=== PATIENT | male | born 1945 | race Caucasian/White ===

== ENCOUNTER 2017-01-30 01:24 | Outpatient (CLI) ==
[2017-01-30 02:42] VITALS: BMI 36.6
== END 2017-01-30 01:25 | disposition home or self-care (01) ==
LOC: AMBL 01:24
PROVIDERS: ATTEND Internal Medicine Geriatric Medicine
DX: R07.89 Other chest pain (principal); S29.9XXA Unspecified injury of thorax, initial encounter; V89.2XXA Person injured in unspecified motor-vehicle accident, traffic, initial encounter

== ENCOUNTER 2017-01-30 02:27 | Emergency (ER) ==
[2017-01-30 02:42] VITALS: BP 150/78; TEMP 98.8; BMI 36.6
[2017-01-30] MEDS ORDERED: DILAUDID 1 MG/ML SYRINGE IVP STA (02:57)
[2017-01-30] MEDS ORDERED: DILAUDID 1 MG/ML SYRINGE IM STA (02:59)
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
--- NOTE | 2017-01-30 04:37 | CT ---
EXAM: CT scan brain without contrast HISTORY: Trauma COMPARISON: None. FINDINGS: Contiguous axial images obtained from the skull base to the convexities without contrast utilizing 5-mm collimation. Sagittal and coronal reconstructions were imaged and reviewed.. The ve ntricles and CSF spaces are prominent compatible with age appropriate atrophy. There is mild perive ntricular hypodensity noted compatible with chronic microvascular disease. Visualized paranasal sin uses mastoid air cells are clear. The calvarium is intact. IMPRESSION: No acute intracranial findings.
--- NOTE | 2017-01-30 04:40 | CT ---
EXAM: CT scan cervical spine HISTORY: Trauma COMPARISON: None. FINDINGS: Contiguous axial images were obtained through the cervical spine utilizing 2-mm collimati on. Sagittal and coronal reconstructions were imaged and reviewed.. The vertebral bodies are genoveva l in height and alignment. There is 3 mm anterolisthesis of C6 upon C7. There is 2 mm anterolisthe sis of C7 upon T1.. The facet joints are intact. There is multilevel facet arthropathy with multil evel neural foraminal narrowing. IMPRESSION: No acute findings.
--- NOTE | 2017-01-30 04:44 | CT ---
EXAM: CT scan thorax without contrast HISTORY: Trauma COMPARISON: None. FINDINGS: Contiguous axial images obtained through the thorax without contrast utilizing 5-mm colli mation. Sagittal and coronal reconstructions were imaged and reviewed. The thoracic inlet is unrema rkable. Sternal wire sutures noted from previous CABG. The heart is enlarged without pericardial ef fusion. The ascending aorta is ectatic measuring 3.9 cm. There is mild dependent atelectasis at bot h lung bases. There is a hiatal hernia. Gallstone seen within the gallbladder.. Bone windows reve als no evidence of lytic or blastic lesions. IMPRESSION: No acute intrathoracic findings.
--- NOTE | 2017-01-30 04:46 | CT ---
EXAM: CT scan abdomen pelvis without contrast HISTORY: Trauma COMPARISON: None. FINDINGS: Contiguous axial images obtained through the abdomen pelvis without contrast utilizing 3- mm collimation. Sagittal and coronal reconstructions were imaged and reviewed.. There is a hiatal hernia. Gallstone is seen within the gallbladder. The liver pancreas spleen and adrenal glands hav e normal unenhanced CT appearance.. Atherosclerotic changes are seen involving the abdominal aorta without aneurysm formation. The right kidneys morphologically normal. There is likely a tiny exoph ytic cyst lower pole left kidney.. There is normal appendix. Streak artifact from bilateral hip pr ostheses obscures detail within the inferior pelvis. The visualized bowel and mesentery are unremar kable.. Postoperative changes are seen within the lower lumbar spine. IMPRESSION: No acute intra-abdominal findings. Cholelithiasis. ASVD without aneurysm.
--- NOTE | 2017-01-30 04:53 | CT ---
EXAM: CT scan lumbar spine HISTORY: Trauma COMPARISON: None. FINDINGS: Contiguous axial images obtained through the lumbar spine utilizing 3-mm collimation. Sa gittal and coronal reconstructions were imaged and reviewed.. Vertebral bodies normal height alignm ent. Degenerate disc disease is noted at L1-L2 19 - L3. Endplate degenerative changes noted at L1- L2. Postoperative changes noted consistent with prior discectomy interbody spacer placement at L3-L 4 L4-L5. There is transpedicular screw fixation at L3-S1. There has been prior partial facetectomy and laminectomy at L3 and L4 levels.. There is mild bone resorption around the right S1 pedicle s crew.. There is a central canal foraminal stenosis most prominent at L2-L3.. Bilateral neural malorie inal stenosis is noted at L3-L4. IMPRESSION: No acute findings. Extensive postoperative changes as described.
== END 2017-01-30 04:55 | disposition home or self-care (01) ==
LOC: ED 02:27
DX: M54.2 Cervicalgia (principal); R07.89 Other chest pain; M54.9 Dorsalgia, unspecified; R51 Headache; R10.84 Generalized abdominal pain; M79.643 Pain in unspecified hand; V47.5XXA Car driver injured in collision with fixed or stationary object in traffic accident, initial encounter
CPT/HCPCS: 74176; 96372; 99284

== ENCOUNTER 2018-08-02 16:38 | Emergency (ER) ==
[2018-08-02 16:42] VITALS: TEMP 99.1; BMI 31.6
[2018-08-02] MEDS ORDERED: DUONEB NEB STA ×3 (16:48→17:50)
[2018-08-02] MEDS ORDERED: SOLU-MEDROL 125 MG IVP STA (17:23)
[2018-08-02] MEDS ORDERED: ROCEPHIN 2 GM in SODIUM CHLORIDE 100 ML IV STA (17:51)
[2018-08-02] MEDS ORDERED: SODIUM CHLORIDE 1,000 ML IV STA ×2 (17:52→17:53)
--- NOTE | 2018-08-02 17:54 | ED.PDOC ---
General Stated Complaint: shortness of breath Time Seen by Physician: 16:40 Mode of Arrival: Walk-In Information Source: Patient Exam Limitations: No limitations Nursing and Triage Documentation Reviewed and Agree: Yes Does patient meet sepsis criteria?: Yes If yes, has appropriate treatment been initiated?: Yes System Inflammatory Response Syndrome: Resp >20/Minute <EDELMIRAHECTORWANDA - Last Filed: 08/02/18 18:47> <JACOB FOSTER - Last Filed: 08/02/18 20:34> ED Provider: Dr. JACOB FOSTER Chief Complaint: Respiratory Complaint Primary Care Provider: NOE [place] Sepsis Protocol: For patient's 13 years and over: Temp is 96.8 and below OR 101 and greater Pulse >90 BPM Resp >20/minute Acutely Altered Mental Status Are patient's symptoms suggestive of a new infection, such as: -Pneumonia -Skin, Soft Tissue -Endocarditis -UTI -Bone, Joint Infection -Implantable Device -Acute Abdominal Infection -Wound Infection -Meningitis -Blood Stream Catheter Infection -Unknown Review of Systems - Review Of Systems Constitutional: Reports: Chills, Malaise, Weakness, Loss of appetite Eyes: Reports: No symptoms Ears, Nose, Mouth, Throat: Reports: No symptoms Respiratory: Reports: Cough, Short of air Cardiac: Reports: No symptoms GI: Reports: No symptoms : Reports: No symptoms Musculoskeletal: Reports: No symptoms Skin: Reports: No symptoms Neurological: Reports: No symptoms Endocrine: Reports: No symptoms Hematologic/Lymphatic: Reports: No symptoms All Other Systems: Reviewed and Negative <LEXUSWANDA - Last Filed: 08/02/18 18:47> Past Medical History - Past Medical History Previously Healthy: Yes Endocrine: Reports: Dyslipidemia Cardiovascular: Reports: Hypertension, CHF Respiratory: Reports: None Hematological: Reports: None Gastrointestinal: Reports: GERD Genitourinary: Reports: None Neuro/Psych: Reports: CVA Musculoskeletal: Reports: Back Pain, Joint Pain Cancer: Reports: None - Surgical History General Surgical History: Reports: CABG, Orthopedic (bilateral hip replacement) , Back Surgery - Family History Family History: Reports: Unknown - Social History Smoking Status: Former smoker Hx Substance Use: No Alcohol Screening: None <LEXUSWANDA - Last Filed: 08/02/18 18:47> Physical Exam - Physical Exam Appearance: Ill-appearing Ill-appearing: Moderate Pain Distress: Moderate Eyes: JOHN, EOMI, Conjunctiva clear ENT: Ears normal, Nose normal, Oropharynx normal Respiratory: Breath sounds diminished (bilateral bases ), Rhonchi Cardiovascular: RRR, Pulses normal, No rub, No murmur GI/: Soft, Nontender, No masses, Bowel sounds normal, No Organomegaly Musculoskeletal: Normal strength, ROM intact, No edema, No calf tenderness Skin: Warm, Dry, Normal color Neurological: Motor intact, Reflexes intact, Cranial nerves intact, Alert, Oriented Psychiatric: Affect appropriate, Mood appropriate <WANDA ALBERTS - Last Filed: 08/02/18 18:47> Interpretation - Radiology Interpretation Radiology Interpretation By: Radiologist Radiology Results: Positive (volume over load) - Tube Station Attendant Rate: Tachy Rhythm: Sinus Ectopy: PACs - EKG Interpretation Rate: Tachy Rhythm: Sinus Ectopy: PACs Howard: NL ST Segment: Normal <WANDA ALBERTS Filed: 08/02/18 18:47> - Radiology Interpretation Radiology Results: Positive Exam Interpreted: CT Scan (Bilateral pneumnia, No PE. CAD diffuse wall edema.Small amount of perihepatic fluid., Cardiomegaly) <JACOB FOSTER - Last Filed: 08/02/18 20:34> Re-Evaluation - Re-Evaluation Time of Re-Evaluation: 17:00 Status: Improved Vital Signs Stable: Yes Pain Level: 0 Appearance: Other (tachypnea , ronchi bases) Skin: Warm and Dry Neuro: Alert and Oriented X3 CV: Other (tachycaria) Additional Comments: 6:30 pm pt is stable HR 103, PULSE OX 97% ON N.R.B. BP 148 /85. - Re-Evaluation Time of Re-Evaluation: 17:57 (6pm more comfortable heart rate 94, o2 sat 100% on nrb on second resp treatment denied chest pain) Status: Improved Vital Signs Stable: Yes Pain Level: 0 Appearance: NAD Skin: Warm and Dry Neuro: Other (heart 105 pulse ox 100 % pt is free of pain) CV: RRR Additional Comments: heart rate 97, pulse 100% on NRB pt is comfortable negative pain time 6:10 <WANDA ALBERTS - Last Filed: 08/02/18 18:47> Physician Notification - Case Discussed Physician Notified: Dr Mac Time of Notification: 20:20 (accepted to Telemetry muhammad at [facility], [place]. 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 Request Transfer to higher level of care. ( JACOB FOSTER) Course - Course Hematology/Chemistry: 08/02/18 17:03 08/02/18 17:03 <WANDA ALBERTS - Last Filed: 08/02/18 18:47> - Course Hematology/Chemistry: 08/02/18 17:03 08/02/18 17:03 <JACOB FOSTER - Last Filed: 08/02/18 20:34> - Course Orders, Labs, Meds: Lab Review 08/02/18 08/02/18 08/02/18 16:49 17:03 17:03 WBC 15.60 H RBC 3.85 L Hgb 11.3 L Hct 35.1 L MCV 91.2 MCH 29.4 MCHC 32.2 RDW Coeff of Flora 16.0 H Plt Count 262 Immature Gran % (Auto) 0.5 Neut % (Auto) 82.3 Lymph % (Auto) 7.7 L [place] % (Auto) 9.1 Eos % (Auto) 0.1 Baso % (Auto) 0.3 Immature Gran # (Auto) 0.1 Neut # (Auto) 12.8 H Lymph # (Auto) 1.2 [place] # (Auto) 1.4 Eos # (Auto) 0.0 Baso # (Auto) 0.0 PT INR APTT Puncture Site Rb O2 Saturation 90.0 L ABG pH 7.424 ABG pCO2 30.8 L ABG pO2 57.0 L* ABG HCO3 20.2 L ABG Total CO2 21 L ABG Base Excess -4 L FiO2 % 21.0 Sodium 135.6 Potassium 4.01 Chloride 104.9 Carbon Dioxide 26.1 Anion Gap 8.61 BUN 14.5 Creatinine 0.89 Estimated GFR (MDRD) 84.00 BUN/Creatinine Ratio 16.29 Glucose 107.7 H Lactic Acid Calcium 9.04 Total Bilirubin 1.60 H AST 36.5 ALT 26.2 Alkaline Phosphatase 133.5 H Total Creatine Kinase 78.8 Troponin I 0.040 NT-Pro-B Natriuret Pep Total Protein 7.26 Albumin 3.84 Globulin 3.42 Albumin/Globulin Ratio 1.12 Procalcitonin Influ A Molecular Assay Influ B Molecular Assay 08/02/18 08/02/18 08/02/18 17:03 17:03 17:03 WBC RBC Hgb Hct MCV MCH MCHC RDW Coeff of [place] Plt Count Immature Gran % (Auto) Neut % (Auto) Lymph % (Auto) [place] % (Auto) Eos % (Auto) Baso % (Auto) Immature Gran # (Auto) Neut # (Auto) Lymph # (Auto) [place] # (Auto) Eos # (Auto) Baso # (Auto) PT 11.0 INR 1.10 APTT 27.2 Puncture Site O2 Saturation ABG pH ABG pCO2 ABG pO2 ABG HCO3 ABG Total CO2 ABG Base Excess FiO2 % Sodium Potassium Chloride Carbon Dioxide Anion Gap BUN Creatinine Estimated GFR (MDRD) BUN/Creatinine Ratio Glucose Lactic Acid 1.72 Calcium Total Bilirubin AST ALT Alkaline Phosphatase Total Creatine Kinase Troponin I NT-Pro-B Natriuret Pep Total Protein Albumin Globulin Albumin/Globulin Ratio Procalcitonin 0.05 Influ A Molecular Assay Influ B Molecular Assay 08/02/18 08/02/18 08/02/18 17:05 19:18 19:20 WBC RBC Hgb Hct MCV MCH MCHC RDW Coeff of [place]ora Plt Count Immature Gran % (Auto) Neut % (Auto) Lymph % (Auto) [place] % (Auto) Eos % (Auto) Baso % (Auto) Immature Gran # (Auto) Neut # (Auto) Lymph # (Auto) [place] # (Auto) Eos # (Auto) Baso # (Auto) PT INR APTT Puncture Site O2 Saturation ABG pH ABG pCO2 ABG pO2 ABG HCO3 ABG Total CO2 ABG Base Excess FiO2 % Sodium Potassium Chloride Carbon Dioxide Anion Gap BUN Creatinine Estimated GFR (MDRD) BUN/Creatinine Ratio Glucose Lactic Acid Calcium Total Bilirubin AST ALT Alkaline Phosphatase Total Creatine Kinase Troponin I 0.041 NT-Pro-B Natriuret Pep 22285.000 H Total Protein Albumin Globulin Albumin/Globulin Ratio Procalcitonin Influ A Molecular Assay Negative by naat Influ B Molecular Assay Negative by naat Orders Category Date Time Status ABG DRAW REQUEST Stat CARDIO 08/02/18 16:49 Completed EKG-(ED ONLY) Stat CARDIO 08/02/18 16:50 Completed NEBULIZER TREATMENT Stat CARDIO 08/02/18 16:48 Completed NEBULIZER TREATMENT Stat CARDIO 08/02/18 17:50 Completed NPO REMINDER: IMAGING ONCE CARE 08/02/18 18:07 Completed ABG Stat LAB 08/02/18 16:49 Completed BLOOD CULTURE (ED ONLY) Stat LAB 08/02/18 17:03 Received CBC W/ AUTO DIFF Stat LAB 08/02/18 17:03 Completed COMPREHENSIVE METABOLIC PANEL Stat LAB 08/02/18 17:03 Completed CREATINE KINASE Stat LAB 08/02/18 17:03 Completed FLU A/B MOLECULAR Stat LAB 08/02/18 17:05 Completed LACTIC ACID Stat LAB 08/02/18 17:03 Completed PARTIAL THROMBOPLASTIN TIME Stat LAB 08/02/18 17:03 Completed PRO-BNP [NT-PROBNP] Stat LAB 08/02/18 19:20 Completed PROCALCITONIN Stat LAB 08/02/18 17:03 Completed PT WITH INR Stat LAB 08/02/18 17:03 Completed TROPONIN I Stat LAB 08/02/18 17:03 Completed TROPONIN I Stat LAB 08/02/18 19:18 Completed 0.9 % Sodium Chloride [Saline Flush] MEDS 08/02/18 16:49 Discontinued 1 syr IVF PRN PRN Azithromycin Inj [Zithromax] 500 mg MEDS 08/02/18 20:27 Active 0.9 % Sodium Chloride [Sodium Chloride] 250 ml IV ONCE Ceftriaxone Sodium [Rocephin] MEDS 08/02/18 18:01 Discontinued 2 gm .ROUTE .STK-MED ONE Ceftriaxone Sodium [Rocephin] 2 gm MEDS 08/02/18 17:51 Discontinued 0.9 % Sodium Chloride [Sodium Chloride] 100 ml IV ONCE Furosemide [Lasix] MEDS 08/02/18 18:05 Discontinued 20 mg IVP ONCE STA Ipratropium/Albuterol Neb [Duoneb] MEDS 08/02/18 16:48 Discontinued 1 vial NEB ONCE STA Ipratropium/Albuterol Neb [Duoneb] MEDS 08/02/18 16:50 Discontinued 1 vial NEB ONCE STA Ipratropium/Albuterol Neb [Duoneb] MEDS 08/02/18 17:50 Discontinued 1 vial NEB ONCE STA Methylprednisolone Sod Succ/Pf [Solu-Medrol 125 mg] MEDS 08/02/18 17:23 Discontinued 125 mg IVP ONCE STA Sodium Chloride 0.9% [Sodium Chloride] 1,000 ml MEDS 08/02/18 17:52 Active IV 125 mls/hr CHEST, 1V AP ONLY Stat RADS 08/02/18 16:[address] CHEST PE PROTOCOL Stat RADS 08/02/18 18:06 Completed Medications Generic Name Dose Route Start Last Admin Trade Name Freq PRN Reason Stop Dose Admin Sodium Chloride 1,000 mls @ 125 mls/hr 08/02/18 17:52 08/02/18 18:08 Sodium Chloride IV 08/03/18 01:51 125 mls/hr .Q8H STA Administration Azithromycin 500 mg/ Sodium 250 mls @ 125 mls/hr 08/02/18 20:27 Chloride IV 08/02/18 22:26 ONCE STA Discontinued Medications Generic Name Dose Route Start Last Admin Trade Name Freq PRN Reason Stop Dose Admin Albuterol/Ipratropium 1 vial 08/02/18 16:48 08/02/18 17:01 Duoneb NEB 08/02/18 16:49 1 vial ONCE STA Administration Albuterol/Ipratropium 1 vial 08/02/18 16:50 08/02/18 17:14 Duoneb NEB 08/02/18 16:51 Not Given ONCE STA Albuterol/Ipratropium 1 vial 08/02/18 17:50 08/02/18 17:55 Duoneb NEB 08/02/18 17:51 1 vial ONCE STA Administration Furosemide 20 mg 08/02/18 18:05 08/02/18 18:10 Lasix IVP 08/02/18 18:06 20 mg ONCE STA Administration Ceftriaxone Sodium 2 gm/ 100 mls @ 100 mls/hr 08/02/18 17:51 08/02/18 18:07 Sodium Chloride IV 08/02/18 18:50 100 mls/hr ONCE STA Administration Methylprednisolone Sodium Succinate 125 mg 08/02/18 17:23 08/02/18 17:37 Solu-Medrol 125 Mg IVP 08/02/18 17:24 125 mg ONCE STA Administration Sodium Chloride 1 syr 08/02/18 16:49 08/02/18 17:38 Saline Flush IVF 1 syr PRN PRN Administration To flush IV Vital Signs: Temp Pulse Resp BP Pulse Ox 08/02/18 20:04 95 H 130/74 95 08/02/18 18:57 102 H 121/72 100 08/02/18 18:26 97 H 24 148/85 H 100 08/02/18 16:38 99.1 F 103 H 28 H 128/73 90 L Departure - Departure Time of Disposition: 19:00 (returns from CT DEPT . PT IS COMFORTABLE ALL VITAL SIGNS STABLE NO CHEST PAIN) Pt referred to PMD for follow-up: Yes IPMP verified?: No Disposition Discussed With: Patient <WANDA ALBERTS - Last Filed: 08/02/18 18:47> - Departure Time of Disposition: 20:59 <JACOB FOSTER - Last Filed: 08/02/18 20:34> - Departure Disposition: TSF SHORT-TRM HOSP Discharge Problem: Pneumonia Qualifiers: Pneumonia type: due to unspecified organism Laterality: unspecified laterality Lung location: unspecified part of lung Qualified Code(s): J18.9 - Pneumonia, unspecified organism CHF exacerbation Qualifiers: Heart failure type: systolic Qualified Code(s): I50.23 - Acute on chronic systolic (congestive) heart failure Instructions: Pneumonitis (ED) Condition: Fair Additional Instructions: Please call your Family Physician as soon as possible to schedule a follow-up appointment. Allergies/Adverse Reactions: Allergies diazepam [From Valium] Adverse Reaction (Verified 08/02/18 16:42) Anaphylaxis Home Medications: Ambulatory Orders Albuterol Sulfate [Proair Hfa] 2 puff IH Q4H PRN 08/02/18 Aspirin 81 mg PO DAILY 08/02/18
--- NOTE | 2018-08-02 17:59 | DI ---
Exam: Chest one-view History: Shortness of breath FINDINGS: The cardiac silhouette is upper limits. The pulmonary vasculature is prominent but techni que accentuated. No edematous infiltrates or consolidative opacities. Prior mediastinotomy. No acu te chest wall abnormality. Impression: Borderline cardiomegaly with central vascular prominence possibly technique accentuated. Correlate for evidence of volume overload. No acute findings otherwise.
[2018-08-02] MEDS ORDERED: ROCEPHIN ONE (18:01)
[2018-08-02] MEDS ORDERED: LASIX IVP STA (18:05)
--- NOTE | 2018-08-02 19:06 | CT ---
EXAM: CTA of the chest. History: Short of breath Comparison: Chest radiograph 08/02/2018 Technique: Multiplanar CT images through the thorax were obtained following administration of IV con trast. MIP images and 3-D reconstructions were also acquired. Findings: Bilateral gynecomastia. Diffuse body wall edema. Heart is enlarged. Coronary calcifications. No pericardial effusion. No thoracic aortic aneurysm. No axillary lymphadenopathy. No pathologically enlarged mediastinal lymph nodes. No hilar lymphade nopathy. There is interlobular septal thickening and small to moderate bilateral pleural effusions. Bilateral ground-glass infiltrates and nodular areas of consolidation within the lower lungs. No pn eumothorax. Within the visualized upper abdomen, small amount of perihepatic fluid. The no acute osseous abnorma lities. Sternotomy wires. No pulmonary arterial filling defects. Impression: 1. No pulmonary embolism. 2. Cardiomegaly with pulmonary edema and small to moderate bilateral pleural effusions. 3. Bilateral pneumonia. 4. Coronary artery disease. 5. Diffuse body wall edema. 6. Small amount of perihepatic fluid
[2018-08-02 20:06] VITALS: BP 130/74
[2018-08-02] MEDS ORDERED: ZITHROMAX 500 MG in SODIUM CHLORIDE 250 ML IV STA (20:27)
== END 2018-08-02 22:15 | disposition short-term general hospital (02) ==
LOC: ED 16:38
DX: J18.9 Pneumonia, unspecified organism (principal); I50.23 Acute on chronic systolic (congestive) heart failure; R06.02 Shortness of breath; E78.5 Hyperlipidemia, unspecified; I10 Essential (primary) hypertension; Z86.73 Personal history of transient ischemic attack (TIA), and cerebral infarction without residual deficits; Z95.1 Presence of aortocoronary bypass graft
CPT/HCPCS: 36415; 80053; 82550; 82803; 83605; 83880; 84145; 84484; 85025; 85610; 85730; 87040; 87502; 93005; 93010; 94640; 96361; 96365; 96366; 96375; 99285

== ENCOUNTER 2018-08-02 22:22 | Outpatient (CLI) ==
[2018-08-02 16:42] VITALS: BMI 31.6
== END 2018-08-02 22:42 | disposition short-term general hospital (02) ==
LOC: AMBL 22:22
PROVIDERS: ATTEND Internal Medicine Geriatric Medicine
DX: R06.00 Dyspnea, unspecified (principal)

== ENCOUNTER 2018-09-09 15:44 | Emergency (ER) | payer OTHER ==
[2018-09-09 15:54] VITALS: BP 122/75; TEMP 96.3; BMI 30.6
--- NOTE | 2018-09-09 15:57 | ED.PDOC ---
General ED Provider: Dr. TANYA CAIN Chief Complaint: Respiratory Complaint Stated Complaint: Shortness of breath. Hx of CHF and Pleural Effusion. States over past few days has become increasingly more dyspneic with swelling in his legs, ankles and feet. Feels chest tighness and more problems with SOB at rest and exertion. He felt he needed emergent treatment due to his symptoms and know medical problems. Time Seen by Physician: 15:45 Mode of Arrival: Walk-In Information Source: Patient Exam Limitations: No limitations Primary Care Provider: NOE [facility] Nursing and Triage Documentation Reviewed and Agree: Yes Does patient meet sepsis criteria?: No System Inflammatory Response Syndrome: Not Applicable Sepsis Protocol: For patient's 13 years and over: Temp is 96.8 and below OR 101 and greater Pulse >90 BPM Resp >20/minute Acutely Altered Mental Status Are patient's symptoms suggestive of a new infection, such as: -Pneumonia -Skin, Soft Tissue -Endocarditis -UTI -Bone, Joint Infection -Implantable Device -Acute Abdominal Infection -Wound Infection -Meningitis -Blood Stream Catheter Infection -Unknown Respiratory Complaint Exam - Shortness of Air Complaint/Exam Symptoms Are: Still present Timing: Intermittent Initial Severity: Moderate Current Severity: Moderate Character: Reports: Dyspnea at rest, Dyspnea on exertion Aggravating: Reports: Movement (Exertional activity) Alleviating: Reports: None, Upright position Associated Signs and Symptoms: Reports: Cough, Wheezing. Denies: Chest pain, Fever, Chills, Diaphoresis, Nasal congestion, Dizziness, Calf pain, Calf swelling, Edema Related History: Reports: Similar episode (hx pericardial effussion) History of Healthcare-Acquired Pneumonia: No Pulmonary Embolism Risk Factors: Reports: None Pseudomonas Risk Factors: Reports: None Tuberculosis Risk Factors: Reports: None Respiratory Distress: None Stridor Present: No Tracheal Deviation: No Subcutaneous Emphysema: No Accessory Muscle Use: No Retractions: Not Present Diminished Breath Sounds: No Prolonged Expiratory Phase: No Unable to Speak Full Sentences: No Fatigue: Yes Corina's Sign Present: No Grunting Respirations: No Kussmaul Respirations: No Differential Diagnoses: CHF, Pulmonary Embolism Quality Indicators for AMI: EKG in 10min. Quality Indicators for Cardiac Chest Pain: EKG in 10min. Review of Systems - Review Of Systems Constitutional: Reports: Weakness Eyes: Reports: No symptoms Ears, Nose, Mouth, Throat: Reports: No symptoms Respiratory: Reports: Short of air Cardiac: Reports: Edema GI: Reports: No symptoms : Reports: No symptoms Musculoskeletal: Reports: No symptoms Skin: Reports: No symptoms Neurological: Reports: No symptoms Endocrine: Reports: No symptoms Hematologic/Lymphatic: Reports: No symptoms All Other Systems: Reviewed and Negative Past Medical History - Past Medical History Previously Healthy: Yes Endocrine: Reports: Hypothyroid, Dyslipidemia Cardiovascular: Reports: Hypertension, CHF Respiratory: Reports: None Hematological: Reports: None Gastrointestinal: Reports: GERD Genitourinary: Reports: None Neuro/Psych: Reports: CVA Musculoskeletal: Reports: Back Pain, Joint Pain Cancer: Reports: None - Surgical History General Surgical History: Reports: CABG, Orthopedic (bilateral hip replacement) , Back Surgery - Family History Family History: Reports: Unknown - Social History Smoking Status: Former smoker Hx Substance Use: No Alcohol Screening: None Physical Exam - Physical Exam Appearance: Ill-appearing Ill-appearing: Moderate Pain Distress: None Eyes: JOHN, EOMI, Conjunctiva clear ENT: Ears normal, Nose normal, Oropharynx normal Neck: Supple (gross jugular venous distension 3-4 cm at 45 deg and HJReflux) Respiratory: Airway patent, Breath sounds clear, Breath sounds equal, Breath sounds diminished Cardiovascular: RRR, Pulses normal, No rub, No murmur GI/: Soft, Nontender, No masses, Bowel sounds normal, No Organomegaly Musculoskeletal: Normal strength, ROM intact, No edema, No calf tenderness Skin: Warm Neurological: Sensation intact, Motor intact, Reflexes intact, Cranial nerves intact, Alert, Oriented Psychiatric: Affect appropriate, Mood appropriate Interpretation - Radiology Interpretation Radiology Interpretation By: ED Physician Exam Interpreted: Portable CXR Xray Comments: josé miguel cardiomegaly with pulm vasc congestion Physician Notification - Case Discussed [facility] Time of Notification: 17:00 (Would not accept-needs higher level of care) Physician Notified: Dr GARY Singh at [facility] Time of Notification: 19:40 (accepts transfer) Critical Care Note - Critical Care Note Total Time (mins): 120 Course - Course Hematology/Chemistry: 09/09/18 16:20 09/09/18 16:20 Orders, Labs, Meds: Lab Review 09/09/18 09/09/18 09/09/18 16:03 16:07 16:07 WBC RBC Hgb Hct MCV MCH MCHC RDW Coeff of Flora Plt Count Immature Gran % (Auto) Neut % (Auto) Lymph % (Auto) [place] % (Auto) Eos % (Auto) Baso % (Auto) Immature Gran # (Auto) Neut # (Auto) Lymph # (Auto) [place] # (Auto) Eos # (Auto) Baso # (Auto) ESR PT INR APTT D-Dimer (Manual) Puncture Site L brachial O2 Saturation 98.0 ABG pH 7.422 ABG pCO2 36.8 ABG pO2 101.0 H ABG HCO3 24 ABG Total CO2 25 ABG Base Excess 0 Martinez Test + FiO2 % 21.0 Sodium Potassium Chloride Carbon Dioxide Anion Gap BUN Creatinine Estimated GFR (MDRD) BUN/Creatinine Ratio Glucose Calcium Total Bilirubin AST ALT Alkaline Phosphatase Troponin I NT-Pro-B Natriuret Pep Total Protein Albumin Globulin Albumin/Globulin Ratio Influ A Molecular Assay Negative by naat Influ B Molecular Assay Negative by naat RSV Antigen Negative by naat 09/09/18 09/09/18 09/09/18 16:20 16:20 16:20 WBC 5.91 RBC 3.29 L Hgb 9.7 L Hct 30.3 L MCV 92.1 MCH 29.5 MCHC 32.0 RDW Coeff of Flora 16.0 H Plt Count 155 Immature Gran % (Auto) 0.3 Neut % (Auto) 63.3 Lymph % (Auto) 21.3 [place] % (Auto) 13.9 H Eos % (Auto) 0.7 Baso % (Auto) 0.5 Immature Gran # (Auto) 0.0 Neut # (Auto) 3.7 Lymph # (Auto) 1.3 [place] # (Auto) 0.8 Eos # (Auto) 0.0 Baso # (Auto) 0.0 ESR 27 H PT 11.7 H INR 1.18 APTT 30.2 D-Dimer (Manual) Puncture Site O2 Saturation ABG pH ABG pCO2 ABG pO2 ABG HCO3 ABG Total CO2 ABG Base Excess Martinez Test FiO2 % Sodium 136.2 Potassium 4.15 Chloride 99.2 Carbon Dioxide 29.2 Anion Gap 11.95 BUN 16.4 Creatinine 1.17 H Estimated GFR (MDRD) 61.00 BUN/Creatinine Ratio 14.01 Glucose 114.1 H Calcium 9.05 Total Bilirubin 0.93 AST 44.1 ALT 30.8 Alkaline Phosphatase 102.5 Troponin I 0.028 NT-Pro-B Natriuret Pep 6100.000 H Total Protein 6.88 Albumin 3.75 Globulin 3.13 Albumin/Globulin Ratio 1.19 Influ A Molecular Assay Influ B Molecular Assay RSV Antigen 09/09/18 16:20 WBC RBC Hgb Hct MCV MCH MCHC RDW Coeff of Flora Plt Count Immature Gran % (Auto) Neut % (Auto) Lymph % (Auto) [place] % (Auto) Eos % (Auto) Baso % (Auto) Immature Gran # (Auto) Neut # (Auto) Lymph # (Auto) [place] # (Auto) Eos # (Auto) Baso # (Auto) ESR PT INR APTT D-Dimer (Manual) 1264.58 Puncture Site O2 Saturation ABG pH ABG pCO2 ABG pO2 ABG HCO3 ABG Total CO2 ABG Base Excess Martinez Test FiO2 % Sodium Potassium Chloride Carbon Dioxide Anion Gap BUN Creatinine Estimated GFR (MDRD) BUN/Creatinine Ratio Glucose Calcium Total Bilirubin AST ALT Alkaline Phosphatase Troponin I NT-Pro-B Natriuret Pep Total Protein Albumin Globulin Albumin/Globulin Ratio Influ A Molecular Assay Influ B Molecular Assay RSV Antigen Orders Category Date Time Status ABG DRAW REQUEST Stat CARDIO 09/09/18 16:04 Completed EKG-(ED ONLY) Stat CARDIO 09/09/18 16:01 Completed NPO REMINDER: IMAGING ONCE CARE 09/09/18 16:11 Completed IV [ED IV/MEDIPORT/POWERPORT] .ONCE EMERGENCY 09/09/18 16:12 Active ABG Stat LAB 09/09/18 16:03 Completed BLOOD CULTURE Stat LAB 09/09/18 18:30 Received CBC W/ AUTO DIFF Stat LAB 09/09/18 16:20 Completed CMP [COMPREHENSIVE METABOLIC PANEL] Stat LAB 09/09/18 16:20 Completed D-DIMER Stat LAB 09/09/18 16:20 Completed ESR Stat LAB 09/09/18 16:20 Completed FLU A & B MOLECULAR [FLU A/B MOLECULAR] Stat LAB 09/09/18 16:07 Completed NT-PROBNP Stat LAB 09/09/18 16:20 Completed PARTIAL THROMBOPLASTIN TIME Stat LAB 09/09/18 16:20 Completed PT WITH INR Stat LAB 09/09/18 16:20 Completed RAPID STREP SCREEN [MOLECULAR GROUP A STREP] Stat LAB 09/09/18 16:07 Completed RSV Stat LAB 09/09/18 16:07 Completed TROPONIN I Stat LAB 09/09/18 16:20 Completed UA [URINALYSIS C & S IF INDICATED] Stat LAB 09/09/18 16:14 Ordered 0.9 % Sodium Chloride [Saline Flush] MEDS 09/09/18 16:12 Ordered 1 syr IVF PRN PRN Ceftriaxone Sodium [Rocephin] 1 gm MEDS 09/09/18 18:19 Discontinued 0.9 % Sodium Chloride [Sodium Chloride] 50 ml IV ONCE Furosemide [Lasix] MEDS 09/09/18 16:36 Discontinued 40 mg IVP ONCE STA CHEST, 1V AP ONLY Stat RADS 09/09/18 16:[address] CHEST W/O CONTRAST Stat RADS 09/09/18 16:10 Completed Medications Generic Name Dose Route Start Last Admin Trade Name Freq PRN Reason Stop Dose Admin Sodium Chloride 1 syr 09/09/18 16:12 09/09/18 16:52 Saline Flush IVF 1 syr PRN PRN Administration To flush IV Discontinued Medications Generic Name Dose Route Start Last Admin Trade Name Freq PRN Reason Stop Dose Admin Furosemide 40 mg 09/09/18 16:36 09/09/18 16:51 Lasix IVP 09/09/18 16:37 40 mg ONCE STA Administration Ceftriaxone Sodium 1 gm/ 50 mls @ 75 mls/hr 09/09/18 18:19 09/09/18 18:46 Sodium Chloride IV 09/09/18 18:58 75 mls/hr ONCE STA Administration Vital Signs: Temp Pulse Resp BP Pulse Ox 09/09/18 15:45 96.3 F L 68 22 122/75 98 Departure - Departure Time of Disposition: 19:30 Disposition: TSF SHORT-TRM HOSP Discharge Problem: CHF (congestive heart failure), Pneumonia Condition: Fair Pt referred to PMD for follow-up: No IPMP verified?: No Additional Instructions: Discussed need for transf to patient Allergies/Adverse Reactions: Allergies acetaminophen [From Percocet] Adverse Reaction (Verified 09/09/18 15:56) diazepam [From Valium] Adverse Reaction (Verified 09/09/18 15:56) Anaphylaxis lisinopril Adverse Reaction (Verified 09/09/18 15:56) oxycodone [From Percocet] Adverse Reaction (Verified 09/09/18 15:56) simvastatin Adverse Reaction (Verified 09/09/18 15:56) Home Medications: Ambulatory Orders Albuterol Sulfate [Proair Hfa] 2 puff IH Q4H PRN 08/02/18 Aspirin 81 mg PO DAILY 08/02/18 Alprostadil [[place]] 1,000 mcg UR WEEKLY PRN MDD 6 doses/42 days 09/09/18 Amiodarone HCl [Cordarone] 200 mg PO DAILY 09/09/18 Apixaban [Eliquis] 5 mg PO BID 09/09/18 Bisacodyl [Laxative] 10 mg PO DAILY PRN 09/09/18 Budesonide/Formoterol Fumarate [Symbicort 160-4.5 Mcg Inhaler] 2 puff IH BID 04/19 Cholecalciferol (Vitamin D3) [Vitamin D3] 2,000 unit PO DAILY 09/09/18 Furosemide [Lasix Tab] 40 mg PO QDAC 09/09/18 Gabapentin 600 mg PO QID 09/09/18 Isosorbide Mononitrate [Imdur] 30 mg PO DAILY 09/09/18 Metoprolol Succinate [Toprol Xl] 25 mg PO DAILY 09/09/18 Nitroglycerin [Nitrostat] 0.4 mg SL Q5MIN X 3 DOSES PRN 09/09/18 Omeprazole [Prilosec] 20 mg PO QDAC 09/09/18 Tamsulosin HCl [Flomax] 0.8 mg PO DAILY 09/09/18 Transfer Form Completed: Yes Disposition Discussed With: Patient (Spoke with Dr Singh hospitalist who accepted patient in transfer)
[2018-09-09] MEDS ORDERED: LASIX IVP STA (16:36)
--- NOTE | 2018-09-09 17:26 | CT ---
EXAM: CT scan of the chest without contrast HISTORY: Dyspnea TECHNIQUE: Helical imaging of the chest was performed without contrast. 5 mm thin axial images and coronal and sagittal reconstructions were provided for interpretation. Comparison 08/02/2018 CT scan of the chest with contrast. FINDINGS: Small bilateral pleural effusions are identified. Patchy opacities are seen within the de pendent right and left lower lobes bilaterally adjacent to the pleural effusions. Additional patchy opacities are seen in the posterior right upper lobe of the lung. The heart is normal size. There i s atherosclerotic calcification of the thoracic aorta and coronary arteries. There is ascites seen a djacent to the liver. No lytic or blastic lesions are seen within the osseous structures. There has been previous midline sternotomy. There is a calcified gallstone seen within the lumen of the gallb ladder. IMPRESSION: Small bilateral pleural effusions are seen. Superimposed probable pneumonia seen within the lung bases bilaterally and within the posterior right upper lobe of the lung. Ascites.
[2018-09-09] MEDS ORDERED: ROCEPHIN 1 GM in SODIUM CHLORIDE 50 ML IV STA (18:19)
[2018-09-09] MEDS ORDERED: ROCEPHIN ONE (18:32)
--- NOTE | 2018-09-10 05:57 | DI ---
EXAM: Single view of the chest HISTORY: Dyspnea. COMPARISON: Chest x-ray 08/02/[address] chest 09/09/2018 same day FINDINGS: Cardiomediastinal silhouette is enlarged with intact sternotomy wires. There is no pneumot horax or pleural effusion. There is no consolidation, nodule or mass. The osseous structures are un remarkable. IMPRESSION: No acute cardiopulmonary process with effusions and ground-glass on same day CT not iden tified.
== END 2018-09-09 19:56 | disposition short-term general hospital (02) ==
LOC: ED 15:44
DX: I50.9 Heart failure, unspecified (principal); J18.9 Pneumonia, unspecified organism; R06.02 Shortness of breath; E03.9 Hypothyroidism, unspecified; I10 Essential (primary) hypertension; E78.5 Hyperlipidemia, unspecified; Z86.73 Personal history of transient ischemic attack (TIA), and cerebral infarction without residual deficits; Z87.19 Personal history of other diseases of the digestive system; Z95.1 Presence of aortocoronary bypass graft; Z79.899 Other long term (current) drug therapy
CPT/HCPCS: 36415; 80053; 82803; 83880; 84484; 85025; 85379; 85610; 85651; 85730; 87040; 87502; 87651; 87801; 93005; 93010; 96374; 96375; 99285

== ENCOUNTER 2018-09-09 20:04 | Outpatient (CLI) | payer OTHER ==
[2018-09-09 15:54] VITALS: BMI 30.6
== END 2018-09-09 20:27 | disposition short-term general hospital (02) ==
LOC: AMBL 20:04
PROVIDERS: ATTEND Family Medicine
DX: R06.02 Shortness of breath (principal); I50.9 Heart failure, unspecified; I25.10 Atherosclerotic heart disease of native coronary artery without angina pectoris

== ENCOUNTER 2018-12-31 00:52 | Emergency (ER) | payer OTHER ==
--- NOTE | 2018-12-31 00:58 | ED.PDOC ---
General ED Provider: Dr. PAULINA POLLACK Chief Complaint: Head Laceration Stated Complaint: 73 y old qith head laceration,no LOC Time Seen by Physician: 00:55 Mode of Arrival: Walk-In Information Source: Patient Exam Limitations: No limitations Primary Care Provider: NOE BAIRD Nursing and Triage Documentation Reviewed and Agree: Yes Does patient meet sepsis criteria?: No System Inflammatory Response Syndrome: Not Applicable Sepsis Protocol: For patient's 13 years and over: Temp is 96.8 and below OR 101 and greater Pulse >90 BPM Resp >20/minute Acutely Altered Mental Status Are patient's symptoms suggestive of a new infection, such as: -Pneumonia -Skin, Soft Tissue -Endocarditis -UTI -Bone, Joint Infection -Implantable Device -Acute Abdominal Infection -Wound Infection -Meningitis -Blood Stream Catheter Infection -Unknown Neurological Complaint Exam - Headache Complaint/Exam Duration: today Symptoms Are: Still present Timing: Constant Episodes Lasting: Hours Worst Headache Ever: No Initial Severity: Mild Current Severity: Mild Location: Left, Frontal Character: Reports: Sharp Aggravating: Reports: None Alleviating: Reports: None Associated Signs and Symptoms: Reports: Neck stiffness Related Surgical History: Reports: None Meningitis Risk Factors: Reports: None Temporal Arteritis Risk Factors: Reports: None Papilledema Present: No Temporal Artery Tenderness: Present: None Sinus Tenderness: Present: None Meningeal Signs Positive: No Pain on Passive Flexion-Positive Kernig's: No ROM Limited In: No Limitiations Focal Weakness: Present: None Focal Sensory Loss: Present: None Gait: Normal Nystagmus Present: No Gag Reflex Present: Yes Axrrfs-je-Culd: Normal Findings Romberg Test Positive: No (not tested-head injury) Heel to Toe Normal: Yes Differential Diagnoses: Other Review of Systems - Review Of Systems Constitutional: Reports: No symptoms Eyes: Reports: No symptoms Ears, Nose, Mouth, Throat: Reports: No symptoms Respiratory: Reports: No symptoms Cardiac: Reports: No symptoms GI: Reports: No symptoms : Reports: No symptoms Musculoskeletal: Reports: No symptoms Skin: Reports: No symptoms Neurological: Reports: No symptoms Endocrine: Reports: No symptoms Hematologic/Lymphatic: Reports: No symptoms All Other Systems: Reviewed and Negative Past Medical History - Past Medical History Previously Healthy: Yes Endocrine: Reports: Hypothyroid, Dyslipidemia Cardiovascular: Reports: Hypertension, CHF Respiratory: Reports: None Hematological: Reports: None Gastrointestinal: Reports: GERD Genitourinary: Reports: None Neuro/Psych: Reports: CVA Musculoskeletal: Reports: Back Pain, Joint Pain Cancer: Reports: None - Surgical History General Surgical History: Reports: CABG, Orthopedic (bilateral hip replacement) , Back Surgery - Family History Family History: Reports: Unknown - Social History Smoking Status: Former smoker Hx Substance Use: No Alcohol Screening: None Physical Exam - Physical Exam Appearance: No pain distress Ill-appearing: Mild Pain Distress: None Eyes: JOHN, EOMI, Conjunctiva clear ENT: Ears normal, Nose normal, Oropharynx normal Neck: Supple Respiratory: Airway patent, Breath sounds clear Cardiovascular: RRR, Pulses normal GI/: Soft, Nontender, No masses Musculoskeletal: Normal strength, ROM intact, No edema, No calf tenderness Skin: Warm, Dry, Normal color, Diaphoretic Neurological: Sensation intact, Motor intact, Reflexes intact, Cranial nerves intact, Alert, Oriented Psychiatric: Affect appropriate Procedures - Laceration/Wound Repair No standard instances Wound Length (cm): 3cm Wound Width: 2 mm Wound Explored: Clean Wound Irrigated: Yes Wound Prep: Saline Anesthesia: Lidocaine Wound Debrided: Minimal Undermining: Moderate Wound Margins: Revised Wound Repaired With: Sutures Suture Size and Type: Ethilon 3-0 Layer Closure?: No (on Apixaban./Elliquis hold am dose x 1 day consult [place]) Sterile Dressing Applied?: Yes Splint Applied?: No (dressing x 2 days,revise at [place]) Critical Care Note - Critical Care Note Total Time (mins): 0 Course - Course Orders, Labs, Meds: Orders Category Date Time Status EKG-(ED ONLY) Stat CARDIO 12/31/18 01:09 Ordered Lidocaine HCl/Pf [Lidocaine HCl 1% Sdv] MEDS 12/31/18 01:50 Discontinued 5 ml SUBCUT ONCE STA CT HEAD W/O CONTRAST Stat RADS 12/31/18 01:07 Completed Medications Discontinued Medications Generic Name Dose Route Start Last Admin Trade Name Freq PRN Reason Stop Dose Admin Lidocaine HCl 5 ml 12/31/18 01:50 Lidocaine Hcl 1% Sdv SUBCUT 12/31/18 01:51 ONCE STA Vital Signs: Temp Pulse Resp BP Pulse Ox 12/31/18 00:53 99.9 F H 104 H 20 154/78 H 97 Departure - Departure Time of Disposition: 02:08 Disposition: HOME SELF-CARE Discharge Problem: Laceration of forehead Instructions: Care For Your Stitches (ED) Condition: Good Pt referred to PMD for follow-up: Yes IPMP verified?: No Allergies/Adverse Reactions: Allergies acetaminophen [From Percocet] Adverse Reaction (Verified 12/31/18 01:04) Unknown diazepam [From Valium] Adverse Reaction (Verified 12/31/18 01:04) Anaphylaxis lisinopril Adverse Reaction (Verified 12/31/18 01:04) Unknown oxycodone [From Percocet] Adverse Reaction (Verified 12/31/18 01:04) Unknown PT STATES WAS ALLERGIC TO PERCOCET IN THE PAST BUT NO LONGER HAS AN ALLERGY TO IT simvastatin Adverse Reaction (Verified 12/31/18 01:04) Unknown Home Medications: Ambulatory Orders Albuterol Sulfate [Proair Hfa] 2 puff IH Q4H PRN 08/02/18 Aspirin 81 mg PO DAILY 08/02/18 Alprostadil [[place]] 1,000 mcg UR WEEKLY PRN MDD 6 doses/42 days 09/09/18 Amiodarone HCl [Cordarone] 200 mg PO DAILY 09/09/18 Apixaban [Eliquis] 5 mg PO BID 09/09/18 Bisacodyl [Laxative] 10 mg PO DAILY PRN 09/09/18 Budesonide/Formoterol Fumarate [Symbicort 160-4.5 Mcg Inhaler] 2 puff IH BID 04/19 Cholecalciferol (Vitamin D3) [Vitamin D3] 2,000 unit PO DAILY 09/09/18 Furosemide [Lasix Tab] 40 mg PO QDAC 09/09/18 Gabapentin 600 mg PO QID 09/09/18 Isosorbide Mononitrate [Imdur] 30 mg PO DAILY 09/09/18 Metoprolol Succinate [Toprol Xl] 25 mg PO DAILY 09/09/18 Nitroglycerin [Nitrostat] 0.4 mg SL Q5MIN X 3 DOSES PRN 09/09/18 Omeprazole [Prilosec] 20 mg PO QDAC 09/09/18 Tamsulosin HCl [Flomax] 0.8 mg PO DAILY 09/09/18 Disposition Discussed With: Patient
[2018-12-31 01:01] VITALS: BP 154/78; TEMP 99.9; BMI 29.9
--- NOTE | 2018-12-31 01:29 | CT ---
EXAM: CT brain without contrast HISTORY: Head injury TECHNIQUE: CT of the brain without intravenous contrast FINDINGS: There is no acute hemorrhage midline shift or mass effect. No hydrocephalus or abnormal e xtra-axial fluid collection. Generalized involutional atrophy, mild. Chronic microvascular changes white matter tracts, mild. No acute large vessel territorial infarct is seen. The bony cranium appe ars normal. The visualized paranasal sinuses are clear. Soft tissues without significant abnormality . IMPRESSION: 1. No acute intracranial abnormality. Chronic changes as described.
[2018-12-31] MEDS ORDERED: LIDOCAINE HCL 1% SDV SUBCUT STA (01:50)
== END 2018-12-31 02:13 | disposition home or self-care (01) ==
LOC: ED 00:52
DX: S01.81XA Laceration without foreign body of other part of head, initial encounter (principal); W20.8XXA Other cause of strike by thrown, projected or falling object, initial encounter; E03.9 Hypothyroidism, unspecified; E78.5 Hyperlipidemia, unspecified; I10 Essential (primary) hypertension; Z79.01 Long term (current) use of anticoagulants; Z79.899 Other long term (current) drug therapy; Z86.73 Personal history of transient ischemic attack (TIA), and cerebral infarction without residual deficits; Z95.1 Presence of aortocoronary bypass graft
CPT/HCPCS: 93005; 93010; 99283

== ENCOUNTER 2019-02-15 23:56 | Emergency (ER) | payer OTHER ==
[2019-02-16 00:09] VITALS: BP 107/69; TEMP 98.2
--- NOTE | 2019-02-16 00:11 | ED.PDOC ---
General ED Provider: Dr. JACOB FOSTER Chief Complaint: Chest Pain Stated Complaint: Patient is a 73 year old male who comes to the ER with complains of non-radiating, intermittent pain to mid/left chest since this morning. Also complains of shortness of breath. Has a history of CAD and CHF. Time Seen by Physician: 00:13 Mode of Arrival: Wheelchair Information Source: Patient Exam Limitations: No limitations Primary Care Provider: [facility] Nursing and Triage Documentation Reviewed and Agree: Yes Does patient meet sepsis criteria?: No System Inflammatory Response Syndrome: Not Applicable Sepsis Protocol: For patient's 13 years and over: Temp is 96.8 and below OR 101 and greater Pulse >90 BPM Resp >20/minute Acutely Altered Mental Status Are patient's symptoms suggestive of a new infection, such as: -Pneumonia -Skin, Soft Tissue -Endocarditis -UTI -Bone, Joint Infection -Implantable Device -Acute Abdominal Infection -Wound Infection -Meningitis -Blood Stream Catheter Infection -Unknown Cardiovascular Complaint Exam - Chest Pain Complaint/Exam Onset: Gradual Duration: 1 day Symptoms Are: Still present Timing: Constant, Intermittent Length of Chest Pain Episodes: all day Initial Severity: Severe Current Severity: Severe Location: Reports: Left anterior Pain Radiates: Reports: None Character: Reports: Tightness Aggravating: Reports: None Alleviating: Reports: None Associated Signs and Symptoms: Reports: Nausea, Short of air. Denies: Vomiting , Palpitations, Cough, Hemoptysis, Back pain, Abdominal pain, Dizziness Related History: Reports: Similar episode Related Surgical History: Reports: Cardiac Cath, PTCA/Stent, CABG AMI/ACS Risk Factors: Reports: Myocardial Infarction, Nitroglycerine use, Hypertension, CHF, Dyslipidemia Prior Care for this Complaint: No Recent Stress Test: No Recent Echo/LV Function: No JVD Present: No Subcutaneous Emphysema Present: No Diminshed Breath Sounds: Yes Reproducible Chest Wall Pain: No Bilateral Pulses Present: Yes Unequal Pulses Noted: No If Risk Factors for AMI/ACS Consider: EKG, Cardiac Enzymes, Serial Studies, Oxygen, Aspirin Manager Configuration Consulted: No Differential Diagnoses: Unstable Angina Review of Systems - Review Of Systems Constitutional: Reports: No symptoms Eyes: Reports: No symptoms Ears, Nose, Mouth, Throat: Reports: No symptoms Respiratory: Reports: Short of air Cardiac: Reports: Chest pain GI: Reports: No symptoms : Reports: No symptoms Musculoskeletal: Reports: No symptoms Skin: Reports: No symptoms Neurological: Reports: Anxiety Endocrine: Reports: No symptoms Hematologic/Lymphatic: Reports: No symptoms All Other Systems: Reviewed and Negative Past Medical History - Past Medical History Previously Healthy: Yes Endocrine: Reports: Hypothyroid, Dyslipidemia Cardiovascular: Reports: Hypertension, CHF Respiratory: Reports: None Hematological: Reports: None Gastrointestinal: Reports: GERD Genitourinary: Reports: None Neuro/Psych: Reports: CVA Musculoskeletal: Reports: Back Pain, Joint Pain Cancer: Reports: None - Surgical History General Surgical History: Reports: CABG, Orthopedic (bilateral hip replacement) , Back Surgery - Family History Family History: Reports: Unknown - Social History Smoking Status: Former smoker Hx Substance Use: Yes (ALCOHOL IN THE PAST) Alcohol Screening: None - Immunizations Tetanus Shot up to Date: Yes Physical Exam - Physical Exam Appearance: Ill-appearing Ill-appearing: Moderate Pain Distress: Severe Neck: Supple Respiratory: Airway patent Cardiovascular: RRR, Pulses normal, No rub, Murmur GI/: Soft, Nontender, No masses, Bowel sounds normal, No Organomegaly Musculoskeletal: Normal strength, ROM intact, No edema, No calf tenderness Skin: Warm Neurological: Alert, Oriented Psychiatric: Anxious Interpretation - Radiology Interpretation Radiology Interpretation By: ED Physician Radiology Results: Negative Exam Interpreted: Portable CXR - EKG Interpretation Time of EKG #1: 00:10 Rate: Normal Rhythm: Sinus Ectopy: None [place]: NL Interpretation: left ventricular hypertrophy, Prolonged QT Re-Evaluation - Re-Evaluation Time of Re-Evaluation: 01:15 Status: Unchanged Vital Signs Stable: No (bp 85/41 ) - Re-Evaluation Time of Re-Evaluation: 01:56 Status: Improved Vital Signs Stable: Yes (115/64) Physician Notification - Case Discussed Physician Notified: Dr. collins Time of Notification: 01:20 (accepted if [facility] declines ) Critical Care Note - Critical Care Note Total Time (mins): 45 Course - Course Hematology/Chemistry: 02/16/19 00:10 02/16/19 00:10 Orders, Labs, Meds: Lab Review 02/16/19 02/16/19 02/16/19 00:10 00:10 00:20 WBC 8.05 RBC 3.54 L Hgb 10.9 L Hct 33.2 L MCV 93.8 MCH 30.8 MCHC 32.8 RDW Coeff of [place]ora 13.6 Plt Count 171 Immature Gran % (Auto) 0.2 Neut % (Auto) 71.2 Lymph % (Auto) 15.4 [place] % (Auto) 11.9 H Eos % (Auto) 0.9 Baso % (Auto) 0.4 Immature Gran # (Auto) 0.0 Neut # (Auto) 5.7 Lymph # (Auto) 1.2 [place] # (Auto) 1.0 Eos # (Auto) 0.1 Baso # (Auto) 0.0 Sodium 137.7 Potassium 3.19 L Chloride 97.0 L Carbon Dioxide 30.6 H Anion Gap 13.29 BUN 25.9 H Creatinine 0.90 Estimated GFR (MDRD) 83.00 BUN/Creatinine Ratio 28.77 Glucose 102.4 Calcium 9.35 Total Bilirubin 0.67 AST 62.0 H ALT 34.6 Alkaline Phosphatase 151.6 H Total Creatine Kinase 234.0 H CK-MB (CK-2) 9.250 H* CK-MB (CK-2) % 3.9500 Troponin I 0.080 NT-Pro-B Natriuret Pep 7800.000 H Total Protein 7.44 Albumin 4.21 Globulin 3.23 Albumin/Globulin Ratio 1.30 Orders Category Date Time Status EKG-(ED ONLY) Stat CARDIO 02/16/19 00:05 Ordered ED CHIP FRIER APPLIED .ONCE EMERGENCY 02/16/19 00:05 Active ED IV/MEDIPORT/POWERPORT .ONCE EMERGENCY 02/16/19 00:05 Active CBC W/ AUTO DIFF Stat LAB 02/16/19 00:10 Completed COMPREHENSIVE METABOLIC PANEL Stat LAB 02/16/19 00:10 Completed CREATINE KINASE Stat LAB 02/16/19 00:10 Completed PRO-BNP [NT-PROBNP] Stat LAB 02/16/19 00:20 Completed TROPONIN I Stat LAB 02/16/19 00:10 Completed 0.9 % Sodium Chloride [Saline Flush] MEDS 02/16/19 00:05 Active 1 syr IVF PRN PRN Morphine Sulfate [Morphine 2 mg/ml Syringe] MEDS 02/16/19 00:48 Discontinued 2 mg IVP ONCE STA Nitroglycerin [Nitrostat] MEDS 02/16/19 00:22 Discontinued 0.4 mg SL ONCE STA Ondansetron HCl/Pf [Zofran 4 mg/2 ml] MEDS 02/16/19 00:48 Discontinued 4 mg IVP ONCE STA Sodium Chloride 0.9% [Sodium Chloride] 1,000 ml MEDS 02/16/19 01:11 Active IV 75 mls/hr CHEST, 1V AP ONLY Stat RADS 02/16/19 00:05 Taken Medications Generic Name Dose Route Start Last Admin Trade Name Freq PRN Reason Stop Dose Admin Sodium Chloride 1,000 mls @ 75 mls/hr 02/16/19 01:11 02/16/19 01:10 Sodium Chloride IV 02/16/19 14:30 75 mls/hr .[id number] STA Administration Sodium Chloride 1 syr 02/16/19 00:05 02/16/19 01:01 Saline Flush IVF 1 syr PRN PRN Administration To flush IV Discontinued Medications Generic Name Dose Route Start Last Admin Trade Name Freq PRN Reason Stop Dose Admin Morphine Sulfate 2 mg 02/16/19 00:48 Morphine 2 Mg/Ml Syringe IVP 02/16/19 00:49 ONCE STA Nitroglycerin 0.4 mg 02/16/19 00:22 02/16/19 00:27 Nitrostat SL 02/16/19 00:23 0.4 mg ONCE STA Administration Ondansetron HCl 4 mg 02/16/19 00:48 02/16/19 01:02 Zofran 4 Mg/2 Ml IVP 02/16/19 00:49 4 mg ONCE STA Administration Vital Signs: Temp Pulse Resp BP Pulse Ox 02/15/19 23:56 98.2 F 84 24 107/69 97 EVONNE Risk Score Age >/= 65: Yes >/= 3 CAD Risk Factors: Yes Known CAD (Stenosis >/= 50%): Yes ASA Use in Past 7 Days: Yes Severe Angina (>/= 2 episodes in 24 hours): Yes EKG ST Changes >/= 0.5mm: No Postive Cardiac Marker: No EVONNE Total Score: 5 EVONNE Risk Score: Risk Score Odds of by 30D 0 0.1 (0.1-0.2) 1 0.3 (0.2-0.3) 2 0.4 (0.3-0.5) 3 0.7 (0.6-0.9) 4 1.2 (1.0-1.5) 5 2.2 (1.9-2.6) 6 3.0 (2.5-3.6) 7 4.8 (3.8-6.1) Departure - Departure Time of Disposition: 02:15 Disposition: TSF SHORT-TRM HOSP Discharge Problem: Unstable angina, Hypotension Condition: Fair Pt referred to PMD for follow-up: Yes IPMP verified?: No Allergies/Adverse Reactions: Allergies diazepam [From Valium] Adverse Reaction (Verified 02/16/19 00:03) Anaphylaxis lisinopril Adverse Reaction (Verified 02/16/19 00:03) Unknown oxycodone [From Percocet] Adverse Reaction (Verified 02/16/19 00:03) Unknown PT STATES WAS ALLERGIC TO PERCOCET IN THE PAST BUT NO LONGER HAS AN ALLERGY TO IT simvastatin Adverse Reaction (Verified 02/16/19 00:03) Unknown Home Medications: Ambulatory Orders Albuterol Sulfate [Proair Hfa] 2 puff IH Q4H PRN 08/02/18 Aspirin 81 mg PO DAILY 08/02/18 Alprostadil [[place]] 1,000 mcg UR WEEKLY PRN MDD 6 doses/42 days 09/09/18 Amiodarone HCl [Cordarone] 200 mg PO DAILY 09/09/18 Apixaban [Eliquis] 5 mg PO BID 09/09/18 Bisacodyl [Laxative] 10 mg PO DAILY PRN 09/09/18 Budesonide/Formoterol Fumarate [Symbicort 160-4.5 Mcg Inhaler] 2 puff IH BID 04/19 Cholecalciferol (Vitamin D3) [Vitamin D3] 2,000 unit PO DAILY 09/09/18 Furosemide [Lasix Tab] 40 mg PO DAILY 09/09/18 Gabapentin 600 mg PO QID 09/09/18 Isosorbide Mononitrate [Imdur] 30 mg PO DAILY 09/09/18 Metoprolol Succinate [Toprol Xl] 25 mg PO DAILY 09/09/18 Nitroglycerin [Nitrostat] 0.4 mg SL Q5MIN X 3 DOSES PRN 09/09/18 Omeprazole [Prilosec] 20 mg PO QDAC 09/09/18 Tamsulosin HCl [Flomax] 0.8 mg PO DAILY 09/09/18 Furosemide [Lasix Tab] 80 mg PO DAILY 02/16/19
[2019-02-16] MEDS ORDERED: NITROSTAT SL STA (00:22)
[2019-02-16] MEDS ORDERED: MORPHINE 2 MG/ML SYRINGE IVP STA (00:48)
[2019-02-16] MEDS ORDERED: ZOFRAN 4 MG/2 ML IVP STA (00:48)
[2019-02-16] MEDS ORDERED: SODIUM CHLORIDE 1,000 ML IV STA (01:11)
[2019-02-16 01:43] VITALS: BMI 30.2
--- NOTE | 2019-02-16 02:04 | DI ---
EXAM: AP single view of the chest. HISTORY: Shortness of breath. FINDINGS: The bones are unremarkable. There are multiple sternotomy wires. The cardiac silhouette i s enlarged. The pulmonary vasculature is within normal limits. The costophrenic angles are clear. There is minimal left basilar atelectasis and/or pneumonia. Impression: Minimal left basilar atelectasis and/or pneumonia. Cardiomegaly.
== END 2019-02-16 02:27 | disposition short-term general hospital (02) ==
LOC: ED 23:56
DX: I20.0 Unstable angina (principal); I95.9 Hypotension, unspecified; R06.02 Shortness of breath; I25.810 Atherosclerosis of coronary artery bypass graft(s) without angina pectoris; E78.5 Hyperlipidemia, unspecified; I50.9 Heart failure, unspecified; E03.9 Hypothyroidism, unspecified; Z79.899 Other long term (current) drug therapy; Z95.5 Presence of coronary angioplasty implant and graft; Z86.73 Personal history of transient ischemic attack (TIA), and cerebral infarction without residual deficits
CPT/HCPCS: 36415; 80053; 82550; 82553; 83880; 84484; 85025; 93005; 93010; 96374; 96375; 99285

== ENCOUNTER 2019-02-24 01:03 | Emergency (ER) | payer OTHER ==
[2019-02-24 01:08] VITALS: BMI 31.8
[2019-02-24] MEDS ORDERED: MORPHINE 2 MG/ML SYRINGE IVP STA (01:29)
[2019-02-24] MEDS ORDERED: ZOFRAN 4 MG/2 ML IVP STA ×2 (01:29→04:10)
--- NOTE | 2019-02-24 01:50 | DI ---
Exam: Chest one-view History: Chest pain FINDINGS: Cardiac silhouette is enlarged. Pulmonary vasculature is normal. No infiltrative opaciti es. Prior mediastinotomy. Atherosclerotic calcification of the aorta. No acute chest wall abnormal ity. Impression: Cardiomegaly without acute cardiopulmonary disease.
[2019-02-24] MEDS ORDERED: PHENERGAN 25 MG/ML VIAL ONE (02:10)
[2019-02-24] MEDS ORDERED: DILAUDID 0.5 MG/0.5 ML SYRINGE ONE (02:10)
[2019-02-24] MEDS ORDERED: DILAUDID 0.5 MG/0.5 ML SYRINGE IVP STA (02:15)
[2019-02-24] MEDS ORDERED: PHENERGAN 25 MG/ML VIAL 12.5 MG in SODIUM CHLORIDE 50 ML IV STA (02:15)
[2019-02-24] MEDS ORDERED: SODIUM CHLORIDE 50 ML IV ONE (02:17)
--- NOTE | 2019-02-24 03:00 | ED.PDOC ---
General ED Provider: Dr. TANYA BEAR-ER Chief Complaint: Chest Pain Stated Complaint: my chest hurts and im sob Time Seen by Physician: 01:10 Mode of Arrival: Wheelchair Information Source: Patient Exam Limitations: No limitations Primary Care Provider: [facility] Nursing and Triage Documentation Reviewed and Agree: Yes Does patient meet sepsis criteria?: No System Inflammatory Response Syndrome: Not Applicable Sepsis Protocol: For patient's 13 years and over: Temp is 96.8 and below OR 101 and greater Pulse >90 BPM Resp >20/minute Acutely Altered Mental Status Are patient's symptoms suggestive of a new infection, such as: -Pneumonia -Skin, Soft Tissue -Endocarditis -UTI -Bone, Joint Infection -Implantable Device -Acute Abdominal Infection -Wound Infection -Meningitis -Blood Stream Catheter Infection -Unknown Cardiovascular Complaint Exam - Chest Pain Complaint/Exam Onset: Gradual Duration: 8hrs Symptoms Are: Still present Timing: Constant Initial Severity: Mild Current Severity: Moderate Location: Reports: Diffuse Character: Reports: Dull Associated Signs and Symptoms: Denies: Diaphoresis, Nausea, Vomiting, Fever, Palpitations, Cough, Hemoptysis, Back pain, Abdominal pain, Dizziness, Short of air, Calf pain, Calf swelling History of Healthcare-Acquired Pneumonia: Reports: No Prior Care for this Complaint: No Recent Stress Test: No Recent Echo/LV Function: No JVD Present: No Subcutaneous Emphysema Present: No Diminshed Breath Sounds: No Reproducible Chest Wall Pain: No Bilateral Pulses Present: No Unequal Pulses Noted: No If Risk Factors for AMI/ACS Consider: EKG, Serial Studies If Risk Factors for PE Consider: Chest CT with contrast If Risk Factors for TAD Consider: Chest CT with contrast, Blood pressure control Quality Indicator For Non-Traumatic Chest Pain/Syncope: EKG Performed Review of Systems - Review Of Systems Constitutional: Reports: No symptoms Eyes: Reports: No symptoms Ears, Nose, Mouth, Throat: Reports: No symptoms Respiratory: Reports: Short of air Cardiac: Reports: Chest pain GI: Reports: No symptoms : Reports: No symptoms Musculoskeletal: Reports: No symptoms Skin: Reports: No symptoms Neurological: Reports: No symptoms Endocrine: Reports: No symptoms Hematologic/Lymphatic: Reports: No symptoms All Other Systems: Reviewed and Negative Past Medical History - Past Medical History Previously Healthy: Yes Endocrine: Reports: Hypothyroid, Dyslipidemia Cardiovascular: Reports: Hypertension, CHF Respiratory: Reports: None Hematological: Reports: None Gastrointestinal: Reports: GERD Genitourinary: Reports: None Neuro/Psych: Reports: CVA Musculoskeletal: Reports: Back Pain, Joint Pain Cancer: Reports: None - Surgical History General Surgical History: Reports: CABG, Orthopedic (bilateral hip replacement) , Back Surgery - Family History Family History: Reports: Unknown - Social History Smoking Status: Former smoker Hx Substance Use: Yes (ALCOHOL IN THE PAST) Alcohol Screening: None - Immunizations Tetanus Shot up to Date: Yes Physical Exam - Physical Exam Appearance: Well-appearing, No pain distress, Well-nourished Eyes: JOHN, EOMI, Conjunctiva clear ENT: Ears normal, Nose normal, Oropharynx normal Neck: Supple Respiratory: Airway patent Cardiovascular: RRR GI/: Soft, Nontender, No masses, Bowel sounds normal, No Organomegaly Musculoskeletal: Normal strength, ROM intact, No edema, No calf tenderness Skin: Warm, Dry, Normal color Neurological: Sensation intact, Motor intact, Reflexes intact, Cranial nerves intact, Alert, Oriented Psychiatric: Affect appropriate, Mood appropriate, Anxious Interpretation - EKG Interpretation Time of EKG #1: 02:59 Rate: Normal Rhythm: Sinus Ectopy: None [place]: NL ST Segment: Normal Interpretation: nsr Re-Evaluation - Re-Evaluation Time of Re-Evaluation: 03:50 Status: Improved Vital Signs Stable: Yes Pain Level: 1 Appearance: NAD Lungs: Clear Skin: Warm and Dry Neuro: Alert and Oriented X3 CV: RRR Physician Notification - Case Discussed Physician Notified: juaquin at transfer [facility] Time of Notification: 03:55 Critical Care Note - Critical Care Note Total Time (mins): 0 Course - Course Hematology/Chemistry: 02/24/19 01:10 02/24/19 01:10 Orders, Labs, Meds: Lab Review 02/24/19 02/24/19 02/24/19 01:10 01:10 01:10 WBC 7.90 RBC 3.40 L Hgb 10.4 L Hct 32.2 L MCV 94.7 H MCH 30.6 MCHC 32.3 RDW Coeff of [place]ora 14.3 Plt Count 205 Immature Gran % (Auto) 1.8 Neut % (Auto) 70.0 Lymph % (Auto) 13.9 [place] % (Auto) 13.4 H Eos % (Auto) 0.5 Baso % (Auto) 0.4 Immature Gran # (Auto) 0.1 Neut # (Auto) 5.5 Lymph # (Auto) 1.1 [place] # (Auto) 1.1 Eos # (Auto) 0.0 Baso # (Auto) 0.0 D-Dimer (Manual) Sodium 138.8 Potassium 3.13 L Chloride 96.8 L Carbon Dioxide 34.0 H Anion Gap 11.13 BUN 15.2 Creatinine 1.00 Estimated GFR (MDRD) 74.00 BUN/Creatinine Ratio 15.20 Glucose 112.1 H Calcium 8.78 Total Bilirubin 1.14 AST 57.8 ALT 64.7 H Alkaline Phosphatase 135.1 H Total Creatine Kinase 96.2 Troponin I 0.057 NT-Pro-B Natriuret Pep Total Protein 6.80 Albumin 3.76 Globulin 3.04 Albumin/Globulin Ratio 1.23 Amylase Lipase 02/24/19 02/24/19 02/24/19 01:10 01:10 01:10 WBC RBC Hgb Hct MCV MCH MCHC RDW Coeff of [place]ora Plt Count Immature Gran % (Auto) Neut % (Auto) Lymph % (Auto) [place] % (Auto) Eos % (Auto) Baso % (Auto) Immature Gran # (Auto) Neut # (Auto) Lymph # (Auto) [place] # (Auto) Eos # (Auto) Baso # (Auto) D-Dimer (Manual) 9155.09 Sodium Potassium Chloride Carbon Dioxide Anion Gap BUN Creatinine Estimated GFR (MDRD) BUN/Creatinine Ratio Glucose Calcium Total Bilirubin AST ALT Alkaline Phosphatase Total Creatine Kinase Troponin I NT-Pro-B Natriuret Pep 7390.000 H Total Protein Albumin Globulin Albumin/Globulin Ratio Amylase 65.0 Lipase 115.0 02/24/19 03:15 WBC RBC Hgb Hct MCV MCH MCHC RDW Coeff of [place] Plt Count Immature Gran % (Auto) Neut % (Auto) Lymph % (Auto) [place] % (Auto) Eos % (Auto) Baso % (Auto) Immature Gran # (Auto) Neut # (Auto) Lymph # (Auto) [place] # (Auto) Eos # (Auto) Baso # (Auto) D-Dimer (Manual) Sodium Potassium Chloride Carbon Dioxide Anion Gap BUN Creatinine Estimated GFR (MDRD) BUN/Creatinine Ratio Glucose Calcium Total Bilirubin AST ALT Alkaline Phosphatase Total Creatine Kinase Troponin I 0.058 NT-Pro-B Natriuret Pep Total Protein Albumin Globulin Albumin/Globulin Ratio Amylase Lipase Orders Category Date Time Status EKG-(ED ONLY) Stat CARDIO 02/24/19 01:04 Completed NPO REMINDER: IMAGING ONCE CARE 02/24/19 01:26 Completed TRANSFER TO OUTSIDE FACILITY .TO [facility] 02/24/19 03:51 Ordered (TRAVIS KELLER) WRITE TRANSFER/SBAR NOTE ONCE CARE 02/24/19 03:51 Ordered DISCHARGE ASSESSMENT ONCE DISCHARGE 02/24/19 03:51 Ordered WRITE DISCHARGE NOTE ONCE DISCHARGE 02/24/19 03:51 Ordered ED APPLY O2 .ONCE EMERGENCY 02/24/19 01:04 Active ED SLAB PULLER APPLIED .ONCE EMERGENCY 02/24/19 01:04 Active ED IV/MEDIPORT/POWERPORT .ONCE EMERGENCY 02/24/19 01:04 Active AMYLASE Stat LAB 02/24/19 01:10 Completed CBC W/ AUTO DIFF Stat LAB 02/24/19 01:10 Completed COMPREHENSIVE METABOLIC PANEL Stat LAB 02/24/19 01:10 Completed CREATINE KINASE Stat LAB 02/24/19 01:10 Completed D-DIMER Stat LAB 02/24/19 01:10 Completed LIPASE Stat LAB 02/24/19 01:10 Completed PRO-BNP [NT-PROBNP] Stat LAB 02/24/19 01:10 Completed TROPONIN I Stat LAB 02/24/19 01:10 Completed TROPONIN I Stat LAB 02/24/19 03:15 Completed 0.9 % Sodium Chloride [Saline Flush] MEDS 02/24/19 01:04 Ordered 1 syr IVF PRN PRN Furosemide [Lasix] MEDS 02/24/19 03:09 Discontinued 20 mg IVP ONCE STA Hydromorphone HCl [Dilaudid 0.5 mg/0.5 ml Syringe] MEDS 02/24/19 02:10 Discontinued 0.5 mg .ROUTE .STK-MED ONE Hydromorphone HCl [Dilaudid 0.5 mg/0.5 ml Syringe] MEDS 02/24/19 02:15 Discontinued 0.5 mg IVP ONCE STA Morphine Sulfate [Morphine 2 mg/ml Syringe] MEDS 02/24/19 01:29 Discontinued 2 mg IVP ONCE STA Ondansetron HCl/Pf [Zofran 4 mg/2 ml] MEDS 02/24/19 01:29 Discontinued 4 mg IVP ONCE STA Promethazine HCl [Phenergan 25 mg/ml Vial] MEDS 02/24/19 02:10 Discontinued 25 mg .ROUTE .STK-MED ONE Promethazine HCl [Phenergan 25 mg/ml Vial] 12.5 mg MEDS 02/24/19 02:15 Discontinued 0.9 % Sodium Chloride [Sodium Chloride] [address] ABDOMEN/PELVIS WO CONTRAST Stat RADS 02/24/19 01:[address] CHEST PE PROTOCOL Stat RADS 02/24/19 01:26 Completed CXR [CHEST, 1V AP ONLY] Stat RADS 02/24/19 01:05 Completed Medications Generic Name Dose Route Start Last Admin Trade Name Freq PRN Reason Stop Dose Admin Sodium Chloride 1 syr 02/24/19 01:04 02/24/19 02:18 Saline Flush IVF 1 syr PRN PRN Administration To flush IV Discontinued Medications Generic Name Dose Route Start Last Admin Trade Name Freq PRN Reason Stop Dose Admin Furosemide 20 mg 02/24/19 03:09 02/24/19 03:16 Lasix IVP 02/24/19 03:10 20 mg ONCE STA Administration Hydromorphone HCl 0.5 mg 02/24/19 02:15 02/24/19 02:19 Dilaudid 0.5 Mg/0.5 Ml Syringe IVP 02/24/19 02:16 Not Given ONCE STA Promethazine HCl 12.5 mg/ 50.5 mls @ 75 mls/hr 02/24/19 02:15 02/24/19 02:19 Sodium Chloride IV 02/24/19 02:55 Not Given ONCE STA Morphine Sulfate 2 mg 02/24/19 01:29 02/24/19 01:33 Morphine 2 Mg/Ml Syringe IVP 02/24/19 01:30 2 mg ONCE STA Administration Ondansetron HCl 4 mg 02/24/19 01:29 02/24/19 01:34 Zofran 4 Mg/2 Ml IVP 02/24/19 01:30 4 mg ONCE STA Administration Vital Signs: Temp Pulse Resp BP Pulse Ox 02/24/19 01:03 99.2 F 85 28 H 121/73 97 EVONNE Risk Score EVONNE Risk Score: Risk Score Odds of by 30D 0 0.1 (0.1-0.2) 1 0.3 (0.2-0.3) 2 0.4 (0.3-0.5) 3 0.7 (0.6-0.9) 4 1.2 (1.0-1.5) 5 2.2 (1.9-2.6) 6 3.0 (2.5-3.6) 7 4.8 (3.8-6.1) Departure - Departure Time of Disposition: 03:50 Disposition: TSF SHORT-TRM HOSP Discharge Problem: Chest pain Instructions: Chest Pain (ED) Condition: Stable Pt referred to PMD for follow-up: Yes IPMP verified?: No Allergies/Adverse Reactions: Allergies diazepam [From Valium] Adverse Reaction (Verified 02/24/19 01:08) Anaphylaxis lisinopril Adverse Reaction (Verified 02/24/19 01:08) Unknown oxycodone [From Percocet] Adverse Reaction (Verified 02/24/19 01:08) Unknown PT STATES WAS ALLERGIC TO PERCOCET IN THE PAST BUT NO LONGER HAS AN ALLERGY TO IT simvastatin Adverse Reaction (Verified 02/24/19 01:08) Unknown Home Medications: Ambulatory Orders Albuterol Sulfate [Proair Hfa] 2 puff IH Q4H PRN 08/02/18 Aspirin 81 mg PO DAILY 08/02/18 Alprostadil [[place]] 1,000 mcg UR WEEKLY PRN MDD 6 doses/42 days 09/09/18 Amiodarone HCl [Cordarone] 200 mg PO DAILY 09/09/18 Apixaban [Eliquis] 5 mg PO BID 09/09/18 Bisacodyl [Laxative] 10 mg PO DAILY PRN 09/09/18 Budesonide/Formoterol Fumarate [Symbicort 160-4.5 Mcg Inhaler] 2 puff IH BID 04/19 Cholecalciferol (Vitamin D3) [Vitamin D3] 2,000 unit PO DAILY 09/09/18 Furosemide [Lasix Tab] 40 mg PO DAILY 09/09/18 Gabapentin 600 mg PO QID 09/09/18 Isosorbide Mononitrate [Imdur] 30 mg PO DAILY 09/09/18 Metoprolol Succinate [Toprol Xl] 25 mg PO DAILY 09/09/18 Nitroglycerin [Nitrostat] 0.4 mg SL Q5MIN X 3 DOSES PRN 09/09/18 Omeprazole [Prilosec] 20 mg PO QDAC 09/09/18 Tamsulosin HCl [Flomax] 0.8 mg PO DAILY 09/09/18 Furosemide [Lasix Tab] 80 mg PO DAILY 02/16/19 Oxycodone HCl/Acetaminophen [Percocet 5-325 mg Tablet] 1 each PO Q6H PRN Transfer Form Completed: Yes Disposition Discussed With: Patient
--- NOTE | 2019-02-24 03:02 | CT ---
EXAM: CT abdomen pelvis without intravenous contrast 02/24/2019. Sagittal and coronal reformatted i mages obtained HISTORY: Abdominal pain COMPARISON: 01/30/2017 FINDINGS: Bilateral pleural effusions. The liver shows no acute abnormality. Gallbladder has been removed. The adrenal glands and kidneys show no acute abnormality. No hydronephrosis. The spleen and pancreas show no acute process. There is no evidence of bowel obstruction. Small quantity of free fluid in the pelvis. Unremarkable urinary bladder. Streak artifact partially obscures the pelvis. Posterior fusion at L3-S1. Sever e degenerative disc disease at L1-L2 and L2-L3. IMPRESSION: 1. Bilateral pleural effusions. 2. Small quantity of free fluid within the abdomen and pelvis. 3. Postoperative changes of the lumbar spine. Bilateral hip arthroplasty. 4. Atherosclerotic vascular disease. 5. Status post cholecystectomy.
--- NOTE | 2019-02-24 03:07 | CT ---
EXAM: CTA chest HISTORY: Chest pain recent gallbladder COMPARISON: Chest 09/09/2018 FINDINGS: Contiguous axial images obtained through the thorax following intravenous contrast utilizi ng 3-mm collimation. Sagittal and coronal reconstructions were imaged and reviewed. Source images u tilized create rotating 3-D MIP image. The thoracic inlet is unremarkable. The ascending aorta is e ctatic measuring 4 cm. Sternal wire sutures noted. The heart silhouette is enlarged without pericar dial effusion. There is suboptimal opacification of the pulmonary arteries without central embolus. There is 1.5 cm right hilar lymph node. There are small pleural effusions left greater than right w ith adjacent atelectasis.. There has been prior cholecystectomy. There is perihepatic and perisplen ic ascites. There is a small hiatal hernia. There is mild body wall edema. IMPRESSION: Suboptimal opacification of the pulmonary arteries without central embolus. Cardiomegaly without pericardial effusion. Small bilateral pleural effusions with adjacent atelectasis left greater than right. Upper abdominal ascites
[2019-02-24] MEDS ORDERED: LASIX IVP STA (03:09)
[2019-02-24 04:23] VITALS: BP 133/80; TEMP 97.9
== END 2019-02-24 04:30 | disposition short-term general hospital (02) ==
LOC: ED 01:03
DX: R07.9 Chest pain, unspecified (principal); R06.02 Shortness of breath; E03.9 Hypothyroidism, unspecified; E78.5 Hyperlipidemia, unspecified; I10 Essential (primary) hypertension; I50.9 Heart failure, unspecified; K21.9 Gastro-esophageal reflux disease without esophagitis; Z79.899 Other long term (current) drug therapy; Z95.1 Presence of aortocoronary bypass graft; Z86.73 Personal history of transient ischemic attack (TIA), and cerebral infarction without residual deficits
CPT/HCPCS: 36415; 80053; 82150; 82550; 83690; 83880; 84484; 85025; 85379; 93005; 93010; 96365; 96374; 96375; 96376; 99285

== ENCOUNTER 2019-03-30 04:57 | Emergency (ER) ==
[2019-03-30 05:07] VITALS: BP 136/76; TEMP 97.5
[2019-03-30 05:15] VITALS: BMI 29.2
--- NOTE | 2019-03-30 05:40 | ED.PDOC ---
General ED Provider: Dr. NIMCO DARBY Chief Complaint: Neck Pain Non-Injury Stated Complaint: My nerve pain in neck is worsening over the last 4 days. It is the same pain as before. Time Seen by Physician: 05:30 Mode of Arrival: Walk-In Information Source: Patient Exam Limitations: No limitations Primary Care Provider: NOE GA Nursing and Triage Documentation Reviewed and Agree: Yes Does patient meet sepsis criteria?: No System Inflammatory Response Syndrome: Not Applicable Sepsis Protocol: For patient's 13 years and over: Temp is 96.8 and below OR 101 and greater Pulse >90 BPM Resp >20/minute Acutely Altered Mental Status Are patient's symptoms suggestive of a new infection, such as: -Pneumonia -Skin, Soft Tissue -Endocarditis -UTI -Bone, Joint Infection -Implantable Device -Acute Abdominal Infection -Wound Infection -Meningitis -Blood Stream Catheter Infection -Unknown Review of Systems - Review Of Systems Constitutional: Reports: No symptoms Respiratory: Reports: No symptoms Cardiac: Reports: No symptoms Musculoskeletal: Reports: Neck pain (same as his usual neck pain flare ups - down R arm and R chest) Skin: Reports: No symptoms Neurological: Reports: No symptoms All Other Systems: Reviewed and Negative Past Medical History - Past Medical History Previously Healthy: Yes Endocrine: Reports: Hypothyroid, Dyslipidemia Cardiovascular: Reports: Hypertension, CHF Respiratory: Reports: None Hematological: Reports: None Gastrointestinal: Reports: GERD Genitourinary: Reports: None Neuro/Psych: Reports: CVA Musculoskeletal: Reports: Back Pain, Joint Pain Cancer: Reports: None - Surgical History General Surgical History: Reports: CABG, Orthopedic (bilateral hip replacement) , Back Surgery - Family History Family History: Reports: Unknown - Social History Smoking Status: Former smoker Hx Substance Use: Yes Alcohol Screening: None - Immunizations Tetanus Shot up to Date: Yes Physical Exam - Physical Exam Appearance: Well-appearing Ill-appearing: None Pain Distress: Moderate (Unable to find comfortable position with neck pain while reclining on exam bed) Eyes: JOHN, EOMI ENT: Oropharynx normal Neck: Supple Respiratory: Airway patent, Breath sounds clear, Breath sounds equal, Respirations nonlabored Cardiovascular: RRR, Pulses normal GI/: Soft, Nontender, No masses, Bowel sounds normal Musculoskeletal: Normal strength, ROM intact, No edema Skin: Warm, Dry, Normal color Neurological: Sensation intact, Motor intact, Alert, Oriented Psychiatric: Affect appropriate, Mood appropriate Critical Care Note - Critical Care Note Total Time (mins): 10 Course - Course Vital Signs: Temp Pulse Resp BP Pulse Ox 03/30/19 04:58 97.5 F L 84 20 136/76 97 Departure - Departure Time of Disposition: 05:51 Disposition: HOME SELF-CARE Discharge Problem: Neck pain on right side Instructions: Acute Neck Pain (ED) Condition: Good Pt referred to PMD for follow-up: Yes ([facility]) IPMP verified?: No (Known for short bouts of chronic pain medicne) Additional Instructions: [facility] and [facility] Use your pain medicaiton as prescribed. Prescriptions: Oxycodone HCl/Acetaminophen [Percocet 10-325 mg Tablet] 1 each PO Q6HR #20 tablet Allergies/Adverse Reactions: Allergies diazepam [From Valium] Adverse Reaction (Verified 03/30/19 05:11) Anaphylaxis 03/30/19PT STATES WAS ALLERGIC TO MEDICATION IN THE PAST BUT IS NOT ALLERGIC ANYMORE lisinopril Adverse Reaction (Verified 03/30/19 05:11) Unknown 03/30/19 PT STATES WAS ALLERGIC TO MED IN THE PAST BUT IS NOT ALLERGIC ANYMORE oxycodone [From Percocet] Adverse Reaction (Verified 03/30/19 05:09) Unknown 03/30/19 PT STATES WAS ALLERGIC TO PERCOCET IN THE PAST BUT NO LONGER HAS AN ALLERGY TO IT simvastatin Adverse Reaction (Verified 03/30/19 05:11) Unknown 03/30/19 PT STATES WAS ALLERGIC TO MED IN THE PAST BUT IS NOT ALLERGIC ANYMORE Home Medications: Ambulatory Orders Albuterol Sulfate [Proair Hfa] 2 puff IH Q4H PRN 08/02/18 Aspirin 81 mg PO DAILY 08/02/18 Alprostadil [Bly] 1,000 mcg UR WEEKLY PRN MDD 6 doses/42 days 09/09/18 Amiodarone HCl [Cordarone] 200 mg PO DAILY 09/09/18 Apixaban [Eliquis] 5 mg PO BID 09/09/18 Bisacodyl [Laxative] 10 mg PO DAILY PRN 09/09/18 Budesonide/Formoterol Fumarate [Symbicort 160-4.5 Mcg Inhaler] 2 puff IH BID 04/19 Cholecalciferol (Vitamin D3) [Vitamin D3] 2,000 unit PO DAILY 09/09/18 Furosemide [Lasix Tab] 40 mg PO DAILY 09/09/18 Gabapentin 600 mg PO QID 09/09/18 Isosorbide Mononitrate [Imdur] 30 mg PO DAILY 09/09/18 Metoprolol Succinate [Toprol Xl] 25 mg PO DAILY 09/09/18 Nitroglycerin [Nitrostat] 0.4 mg SL Q5MIN X 3 DOSES PRN 09/09/18 Omeprazole [Prilosec] 20 mg PO QDAC 09/09/18 Tamsulosin HCl [Flomax] 0.8 mg PO DAILY 09/09/18 Furosemide [Lasix Tab] 80 mg PO DAILY 02/16/19 Oxycodone HCl/Acetaminophen [Percocet 5-325 mg Tablet] 1 each PO Q6H PRN Oxycodone HCl/Acetaminophen [Percocet 10-325 mg Tablet] 1 each PO Q6HR #20 tablet 03/30/19 Disposition Discussed With: Patient (Discussed at length with patient the nature of his pain and that it is the same as he has had numerous times in the past - just worsening in the last couple of days. He wants pain control as he has been getting occasionally with acute exacerbations in the past.)
== END 2019-03-30 06:05 | disposition home or self-care (01) ==
LOC: ED 04:57
DX: M54.2 Cervicalgia (principal)
CPT/HCPCS: 99282

== ENCOUNTER 2019-04-02 05:48 | Emergency (ER) | payer OTHER ==
[2019-04-02 05:59] VITALS: TEMP 97; BMI 26.9
[2019-04-02] MEDS ORDERED: TORADOL IM STA (06:21)
[2019-04-02] MEDS ORDERED: DECADRON 4 MG/ML SDV IM STA (06:21)
[2019-04-02] MEDS: TORADOL IVP STA (06:40)
[2019-04-02] MEDS: SODIUM CHLORIDE 1,000 ML IV STA ×2 (06:40→09:14)
[2019-04-02] MEDS: DECADRON 4 MG/ML SDV IVP STA (06:40)
[2019-04-02] MEDS: DILAUDID 1 MG/ML SYRINGE IVP STA (06:48)
--- NOTE | 2019-04-02 06:48 | ED.PDOC ---
General Stated Complaint: Upper mid back, neck and shoulder pain For few days worse tonight. Took some percocet from old prescirption but did not help. Time Seen by Physician: 06:00 Mode of Arrival: Walk-In Information Source: Patient Exam Limitations: No limitations Seen Within Last 72 Hours for Same Complaint By: ED Nursing and Triage Documentation Reviewed and Agree: Yes Does patient meet sepsis criteria?: No System Inflammatory Response Syndrome: Not Applicable <JACOB FOSTER - Last Filed: 04/02/19 06:59> <WANDA ALBERTS - Last Filed: 04/02/19 07:46> ED Provider: Dr. WANDA ALBERTS Chief Complaint: Shoulder Pain/Injury Primary Care Provider: NOE BAIRD Sepsis Protocol: For patient's 13 years and over: Temp is 96.8 and below OR 101 and greater Pulse >90 BPM Resp >20/minute Acutely Altered Mental Status Are patient's symptoms suggestive of a new infection, such as: -Pneumonia -Skin, Soft Tissue -Endocarditis -UTI -Bone, Joint Infection -Implantable Device -Acute Abdominal Infection -Wound Infection -Meningitis -Blood Stream Catheter Infection -Unknown Musculoskeletal Complaint Exam - Shoulder Pain Complaint/Exam Mechanism of Injury: Reports: No known trauma Onset/Duration: 1 week Symptoms Are: Still present Timing: Constant Initial Severity: Moderate Current Severity: Severe Location: Reports: Radiating Character: Reports: Aching, Throbbing Alleviating: Reports: None Aggravating: Reports: Movement, Lifting, Internal rotation Associated Signs and Symptoms: Denies: Swelling, Redness, Bruising, Fever, Weakness, Numbness, Tingling Related History: Reports: Similar episode Non-Orthopedic Risk Factors: Reports: Referred pain from chest Tenderness: Present: Clavicle, Rotator cuff muscles Differential Diagnoses: AC Seperation, Rotator Cuff Injury, Sprain, Strain, Tendonitis Quality Indicator For Non-Traumatic Chest Pain/Syncope: EKG Performed <JACOB FOSTER - Last Filed: 04/02/19 06:59> Review of Systems - Review Of Systems Constitutional: Reports: No symptoms Eyes: Reports: No symptoms Ears, Nose, Mouth, Throat: Reports: No symptoms Respiratory: Reports: No symptoms Cardiac: Reports: No symptoms GI: Reports: No symptoms : Reports: No symptoms Musculoskeletal: Reports: Back pain, Joint pain (Right shoulder ), Neck pain Skin: Reports: No symptoms Neurological: Reports: No symptoms Endocrine: Reports: No symptoms Hematologic/Lymphatic: Reports: No symptoms All Other Systems: Reviewed and Negative <CRISTIANJACOB Last Filed: 04/02/19 06:59> Past Medical History - Past Medical History Previously Healthy: Yes Endocrine: Reports: Hypothyroid, Dyslipidemia Cardiovascular: Reports: Hypertension, CHF Respiratory: Reports: None Hematological: Reports: None Gastrointestinal: Reports: GERD Genitourinary: Reports: None Neuro/Psych: Reports: CVA Musculoskeletal: Reports: Back Pain, Joint Pain Cancer: Reports: None - Surgical History General Surgical History: Reports: CABG, Orthopedic (bilateral hip replacement) , Back Surgery - Family History Family History: Reports: Unknown - Social History Smoking Status: Former smoker Hx Substance Use: Yes Alcohol Screening: None - Immunizations Tetanus Shot up to Date: Yes <JACOB FOSTER Last Filed: 04/02/19 06:59> Physical Exam - Physical Exam Appearance: Ill-appearing Ill-appearing: Moderate Pain Distress: Severe Eyes: JOHN, EOMI, Conjunctiva clear Neck: Nonsupple (Tenderness to palpation) Respiratory: Airway patent, Breath sounds clear, Breath sounds equal, Respirations nonlabored Cardiovascular: RRR, Pulses normal, No rub, No murmur GI/: Soft, Nontender, No masses Musculoskeletal: Limited ROM (Right shoudler ) Skin: Warm, Dry Neurological: Sensation intact, Motor intact, Reflexes intact Psychiatric: Anxious <JACOB FOSTER Last Filed: 04/02/19 06:59> Interpretation - EKG Interpretation Time of EKG #1: 06:11 Rate: Normal Rhythm: Sinus Ectopy: None Interpretation: LVH with sinus widenting, QT 516 <JACOB FOSTER - Last Filed: 04/02/19 06:59> Critical Care Note - Critical Care Note Total Time (mins): 0 <WANDA ALBERTS - Last Filed: 04/02/19 07:46> Course - Course Hematology/Chemistry: 04/02/19 06:30 <JACOB FOSTER - Last Filed: 04/02/19 06:59> - Course Hematology/Chemistry: 04/02/19 06:30 04/02/19 06:30 <WANDA ALBERTS - Last Filed: 04/02/19 07:46> - Course Orders, Labs, Meds: Lab Review 04/02/19 04/02/19 06:30 06:30 WBC 7.07 RBC 4.09 L Hgb 12.3 L Hct 36.8 L MCV 90.0 MCH 30.1 MCHC 33.4 RDW Coeff of Flora 13.7 Plt Count 199 Immature Gran % (Auto) 0.1 Neut % (Auto) 63.3 Lymph % (Auto) 20.2 [place] % (Auto) 14.3 H Eos % (Auto) 1.4 Baso % (Auto) 0.7 Immature Gran # (Auto) 0.0 Neut # (Auto) 4.5 Lymph # (Auto) 1.4 [place] # (Auto) 1.0 Eos # (Auto) 0.1 Baso # (Auto) 0.1 Sodium 138.1 Potassium 2.69 L* Chloride 96.7 L Carbon Dioxide 32.1 H Anion Gap 11.99 BUN 19.7 Creatinine 1.24 H Estimated GFR (MDRD) 57.00 BUN/Creatinine Ratio 15.88 Glucose 100.1 Calcium 9.74 Total Bilirubin 1.79 H AST 53.8 ALT 31.2 Alkaline Phosphatase 161.2 H Total Creatine Kinase 369.9 H CK-MB (CK-2) Pending CK-MB (CK-2) % Pending Troponin I 0.055 Total Protein 8.85 H Albumin 4.78 Globulin 4.07 Albumin/Globulin Ratio 1.17 Orders Category Date Time Status EKG-(ED ONLY) Stat CARDIO 04/02/19 06:11 Completed ED PAVING AND SURFACING LABOURER APPLIED .ONCE EMERGENCY 04/02/19 06:24 Active ED IV/MEDIPORT/POWERPORT .ONCE EMERGENCY 04/02/19 06:24 Active CBC W/ AUTO DIFF Stat LAB 04/02/19 06:30 Completed COMPREHENSIVE METABOLIC PANEL Stat LAB 04/02/19 06:30 Results CREATINE KINASE Stat LAB 04/02/19 06:30 Results TROPONIN I Stat LAB 04/02/19 06:30 Results 0.9 % Sodium Chloride [Saline Flush] MEDS 04/02/19 06:24 Active 1 syr IVF PRN PRN Dexamethasone 4 mg/ml Inj [Decadron 4 mg/ml Sdv] MEDS 04/02/19 06:26 Discontinued 8 mg IVP ONCE STA Hydromorphone HCl [Dilaudid 1 mg/ml Syringe] MEDS 04/02/19 06:47 Discontinued 1 mg .ROUTE .STK-MED ONE Hydromorphone HCl [Dilaudid 1 mg/ml Syringe] MEDS 04/02/19 06:45 Discontinued 1 mg IVP ONCE STA Ketorolac Tromethamine [Toradol] MEDS 04/02/19 06:24 Discontinued 30 mg IVP ONCE STA Potassium Chloride [K-Dur] MEDS 04/02/19 07:21 Discontinued 40 meq PO ONCE STA Potassium Chloride [Potassium Chloride Premix Run] 10 MEDS 04/02/19 07:21 Active meq Premix 100 ml Water 1 bag IV ONCE Potassium Chloride [Potassium Chloride Premix Run] 100 MEDS 04/02/19 07:26 Discontinued ml IV .STK-MED Sodium Chloride 0.9% [Sodium Chloride] 1,000 ml MEDS 04/02/19 06:24 Active IV 125 mls/hr CT CERVICAL SPINE W/O CONTRAST Stat RADS 04/02/19 06:[address] CHEST W/O CONTRAST Stat RADS 04/02/19 06:23 Ordered Medications Generic Name Dose Route Start Last Admin Trade Name Freq PRN Reason Stop Dose Admin Sodium Chloride 1,000 mls @ 125 mls/hr 04/02/19 06:24 04/02/19 06:40 Sodium Chloride IV 04/02/19 14:23 125 mls/hr .Q8H STA Administration Potassium Chloride 10 meq/ 100 mls @ 100 mls/hr 04/02/19 07:21 04/02/19 07:35 Sterile Water IV 04/02/19 08:20 100 mls/hr ONCE STA Administration Sodium Chloride 1 syr 04/02/19 06:24 Saline Flush IVF PRN PRN To flush IV Discontinued Medications Generic Name Dose Route Start Last Admin Trade Name Freq PRN Reason Stop Dose Admin Dexamethasone Sodium Phosphate 8 mg 04/02/19 06:26 04/02/19 06:40 Decadron 4 Mg/Ml Sdv IVP 04/02/19 06:27 8 mg ONCE STA Administration Hydromorphone HCl 1 mg 04/02/19 06:45 04/02/19 06:48 Dilaudid 1 Mg/Ml Syringe IVP 04/02/19 06:46 1 mg ONCE STA Administration Ketorolac Tromethamine 30 mg 04/02/19 06:24 04/02/19 06:40 Toradol IVP 04/02/19 06:25 30 mg ONCE STA Administration Potassium Chloride 40 meq 04/02/19 07:21 04/02/19 07:36 K-Dur PO 04/02/19 07:22 40 meq ONCE STA Administration Vital Signs: Temp Pulse Resp BP Pulse Ox 04/02/19 05:49 97 F L 82 20 171/76 H 98 Departure <JACOB FOSTER - Last Filed: 04/02/19 06:59> - Departure Time of Disposition: 07:45 Pt referred to PMD for follow-up: Yes IPMP verified?: No <WANDA ALBERTS - Last Filed: 04/02/19 07:46> - Departure Disposition: TSF SHORT-TRM HOSP Discharge Problem: Hypokalemia Instructions: Hypokalemia (ED) Condition: Good Allergies/Adverse Reactions: Allergies diazepam [From Valium] Adverse Reaction (Verified 04/02/19 05:59) Anaphylaxis 03/30/19PT STATES WAS ALLERGIC TO MEDICATION IN THE PAST BUT IS NOT ALLERGIC ANYMORE lisinopril Adverse Reaction (Verified 04/02/19 05:59) Unknown 03/30/19 PT STATES WAS ALLERGIC TO MED IN THE PAST BUT IS NOT ALLERGIC ANYMORE oxycodone [From Percocet] Adverse Reaction (Verified 04/02/19 05:59) Unknown 03/30/19 PT STATES WAS ALLERGIC TO PERCOCET IN THE PAST BUT NO LONGER HAS AN ALLERGY TO IT simvastatin Adverse Reaction (Verified 04/02/19 05:59) Unknown 03/30/19 PT STATES WAS ALLERGIC TO MED IN THE PAST BUT IS NOT ALLERGIC ANYMORE Home Medications: Ambulatory Orders Albuterol Sulfate [Proair Hfa] 2 puff IH Q4H PRN 08/02/18 Aspirin 81 mg PO DAILY 08/02/18 Alprostadil [[place]] 1,000 mcg UR WEEKLY PRN MDD 6 doses/42 days 09/09/18 Amiodarone HCl [Cordarone] 200 mg PO DAILY 09/09/18 Apixaban [Eliquis] 5 mg PO BID 09/09/18 Bisacodyl [Laxative] 10 mg PO DAILY PRN 09/09/18 Budesonide/Formoterol Fumarate [Symbicort 160-4.5 Mcg Inhaler] 2 puff IH BID 04/19 Cholecalciferol (Vitamin D3) [Vitamin D3] 2,000 unit PO DAILY 09/09/18 Furosemide [Lasix Tab] 40 mg PO DAILY 09/09/18 Gabapentin 600 mg PO QID 09/09/18 Isosorbide Mononitrate [Imdur] 30 mg PO DAILY 09/09/18 Metoprolol Succinate [Toprol Xl] 25 mg PO DAILY 09/09/18 Nitroglycerin [Nitrostat] 0.4 mg SL Q5MIN X 3 DOSES PRN 09/09/18 Omeprazole [Prilosec] 20 mg PO QDAC 09/09/18 Tamsulosin HCl [Flomax] 0.8 mg PO DAILY 09/09/18 Furosemide [Lasix Tab] 80 mg PO DAILY 02/16/19 Oxycodone HCl/Acetaminophen [Percocet 10-325 mg Tablet] 1 each PO Q6HR #20 tablet 03/30/19
[2019-04-02] MEDS: DILAUDID 1 MG/ML SYRINGE ONE (06:53)
[2019-04-02] MEDS: POTASSIUM CHLORIDE PREMIX RUN 100 ML IV ONE (07:35)
[2019-04-02] MEDS: POTASSIUM CHLORIDE PREMIX RUN 10 MEQ in PREMIX 100 ML WATER 1 BAG IV STA (07:35)
[2019-04-02] MEDS: K-DUR PO STA (07:36)
--- NOTE | 2019-04-02 08:12 | CT ---
EXAM: CT of the chest without contrast dated 04/02/2019. Clinical history: Right upper chest pain. Technique: Multiple axial images were obtained through the chest without contrast. Sagittal and cor onal reformats were obtained. FINDINGS: Comparison is made to an exam dated 09/09/2018. The heart size remains enlarged. No effusions are seen. Atherosclerotic changes are noted. No infi ltrates, masses, or effusions are seen. No pneumothorax is evident. A median sternotomy has been pe rformed. The ascending aorta is tortuous measures up to 4 cm. A 1.5 cm right hilar lymph node is ag ain seen. A cholecystectomy has been performed. The spleen contains granulomas. The previously see n small hiatal hernia is not well evident. Degenerative changes are seen in the spine. IMPRESSION: Stable cardiomegaly Atherosclerosis Median sternotomy Ascending aorta measuring 4 cm 1.5 cm right hilar lymph node Cholecystectomy
--- NOTE | 2019-04-02 08:15 | CT ---
EXAM: CT Cervical Spine Without contrast this HISTORY: Neck pain radiating to the right arm COMPARISON: None TECHNIQUE: CT Cervical spine performed without intravenous contrast. FINDINGS: No fracture. Vertebal body height: Normal. Intervertebral disc spaces: Normal height. Alignment: Normal cervical lordosis. 3 mm anterolisthesis of C6 on C7. Prevertebral soft tissues: Normal. Lung apices are clear. Bilateral neck atherosclerotic calcifications. C2-C3: No posterior disc bulge. Mild/moderate bilateral facet arthrosis. No of canal or foraminal st enosis. C3-C4: No posterior disc bulge. Moderate left and mild right facet arthrosis and left greater than r ight uncovertebral hypertrophy causing moderate/severe left foraminal narrowing. No right foraminal o r canal stenosis. C4-C5: No disc bulge. Left greater than right uncovertebral hypertrophy and mild left facet arthrosi s. Mild left foraminal narrowing. No high-grade canal or right foraminal narrowing. C5-C6: Small posterior disc osteophyte complex and bilateral uncovertebral hypertrophy. Advanced rig ht and mild left facet arthrosis. Finding contribute to moderate bilateral foraminal narrowing. No c anal narrowing. C6-C7: Trace uncovering of the disc space and small posterior disc osteophyte complex. Advanced bilat eral facet arthrosis and mild uncovertebral hypertrophy. Moderate left and mild/moderate right forami nal narrowing. No canal narrowing. C7-T1: No posterior disc bulge. Right greater than left uncovertebral hypertrophy. Mild bilateral f acet arthrosis. Mild/moderate bilateral foraminal narrowing. IMPRESSION: 1. No acute osseous abnormality. 2. Multilevel cervical spondylosis as detailed above, most significant on the left and C3-4 with mod erate/severe foraminal narrowing. See above discussion. Consider MRI for further evaluation if clini roopa indicated
[2019-04-02 10:34] VITALS: BP 101/59
== END 2019-04-02 10:37 | disposition short-term general hospital (02) ==
LOC: ED 05:48
DX: E87.6 Hypokalemia (principal); M54.6 Pain in thoracic spine; M54.2 Cervicalgia; M25.511 Pain in right shoulder; I10 Essential (primary) hypertension; E78.5 Hyperlipidemia, unspecified; Z86.73 Personal history of transient ischemic attack (TIA), and cerebral infarction without residual deficits; Z79.899 Other long term (current) drug therapy; Z95.1 Presence of aortocoronary bypass graft
CPT/HCPCS: 36415; 80053; 82550; 82553; 83735; 84484; 85025; 93005; 93010; 96361; 96365; 96375; 99285